=== PATIENT | male | born 1940 | race Caucasian/White ===

== ENCOUNTER 2020-04-10 09:10 | Emergency (ER) | payer MEDICARE, MEDICAID, SELFPAY ==
[2020-04-10 09:15] VITALS: BP 193/129; PULSE 84; RESP 18; TEMP 36.6; O2SAT 97; BMI 24.1
--- NOTE | 2020-04-10 09:20 | CT_ITS ---
WS: [id number] CT CERVICAL SPINE HISTORY: fall TECHNIQUE: Contiguous 2.5 mm axial imaging performed through the entire cervical spine. Sagittal and coronal reformats also performed. All CT scans at [facility] use at least one of these do se optimization techniques: automated exposure control; mA and/or kV adjustment per patient size (inc ludes targeted exams where dose is matched to clinical indication); or iterative reconstruction. DLP: 613.3 mGy.cm COMPARISON: 07/16/2015 Slight increase in the cervical lordosis. Craniocervical junction is normally aligned. Lateral masses of C1 and C2 are normally aligned. Odontoid is intact. Degenerative disc disease and bridging osteophytes most significant at C5-6 and C6-7. Facet joints ar e normally aligned. Mild narrowing of the facet joints throughout. C2-C3: Central disc protrusion with no stenosis. C3-C4: Osteophytic ridging with mild central and foraminal stenosis. No fracture. C4-C5: Osteophytic ridging. Moderate central stenosis and mild RIGHT foraminal stenosis. C5-C6: Diffuse osteophytic ridging. Moderate to severe central and bilateral foraminal stenosis. C6-C7: Diffuse osteophytic ridging with severe central and bilateral foraminal stenosis. C7-T1: Mild osteophytic ridging and annular disc bulging. Artifact through the lower cervical spine. Disc protrusions are not completely excluded. Biapical pleural thickening, RIGHT greater than LEFT. Moderate atherosclerosis of the intracranial ca rotid arteries. Moderate calcification through the extracranial carotid arteries with no significant stenosis. CT/CT cervical spin wo con* [id number] IMPRESSION: 1. No acute cervical spine fracture. 2. Multilevel stenoses. Most significant from C4-5 to C6-7.
--- NOTE | 2020-04-10 09:20 | CT_ITS ---
WS: [id number] CT FACIAL BONES HISTORY: fall TECHNIQUE: Images obtained from the supraorbital location through the mandible. Soft tissue and bone windows are reviewed. Coronal and sagittal reformats have also been submitted. DLP: 805.[address] scans at [facility] use at least one of these dose optimization techniques: automat ed exposure control; mA and/or kV adjustment per patient size (includes targeted exams where dose is matched to clinical indication); or iterative reconstruction. COMPARISON: None available. Bilateral nasal bone fractures. The LEFT nasal bone fracture is displaced medially. There is a nondis placed fracture through the mid RIGHT nasal bone also. Nasal septum is intact. There is an S-shaped c urvature of the nasal septum. Soft tissue edema from the injury surrounding the nasal bones. No air-fluid levels in the sinuses. The zygomatic arches are normal. Mandible is intact. Craniocervic al junction is normal. CT/CT facial bones wo con* [id number] IMPRESSION: 1. Bilateral nasal bone fractures. 2. Slight medial deviation of the LEFT nasal bone fracture.
--- NOTE | 2020-04-10 09:20 | ECG_ITS ---
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 Measurements Intervals [place] Rate: 79 P: 70 [place]: 188 QRS: 28 QRSD: 85 T: 56 QT: 376 QTc: 433 Interpretive Statements SINUS RHYTHM MODERATE VOLTAGE CRITERIA FOR LVH, CONSIDER NORMAL VARIANT [MEETS CRITERIA IN ONE OF: R(aVL), S(V1), R(V5), R(V5/V6)+S(V1)] Compared to ECG 06/25/2015 05:54:32 No significant changes Electronically Signed On 04-10-2020 22:43:36 CDT by Joshua Patel M.D. [email or web address]
--- NOTE | 2020-04-10 09:20 | CT_ITS ---
WS: [id number] CT HEAD NONCONTRAST HISTORY: fall TECHNIQUE: Contiguous axial imaging performed through the brain in 2.5 mm imaging. Bone and soft tiss ue windows. Sagittal and coronal reformats reviewed. All CT scans at [facility] use at le ast one of these dose optimization techniques: automated exposure control; mA and/or kV adjustment pe r patient size (includes targeted exams where dose is matched to clinical indication); or iterative r econstruction. DLP: 995.07 mGy.cm COMPARISON: None available. No acute intracranial hemorrhage, midline shift or mass effect. Mild symmetric atrophy and chronic ischemic disease. Ventricles: Normal size with no hydrocephalus. No inferior displacement of cerebellar. Paranasal sinuses: As visualized are clear. 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 Calvarium and scalp: No skull fracture. Incompletely visualized nasal bones but there is a fracture t hrough the LEFT nasal bone and possibly the RIGHT. This will be better evaluated on the facial bone C T performed at the same time. CT/CT head wo con* [id number] IMPRESSION: 1. No acute intracranial hemorrhage or edema. 2. Mild atrophy and chronic ischemic disease. 3. LEFT nasal bone fracture. More detailed imaging of the facial bones on the dedicated CT to follow.
--- NOTE | 2020-04-10 09:27 | W.ED.FALL ---
HPI - Fall General: Chief Complaint: Fall Stated Complaint: FALL Time Seen by Provider: 04/10/20 09:12 History of Present Illness: HPI Narrative: This patient is a 79-year-old male who is a resident at an assisted living facility. He was out walking around the block this morning when he lost his balance and fell forward. He describes the fall as his head getting ahead of his body. He said he felt like he was just walking faster and faster forward to try to catch up with his head and eventually crashed. He hit his face on the sidewalk. He has swelling and deformity to his nose as well as bleeding from the nose. He has a bump on his left elbow. He denies neck pain. He has back pain which is chronic and unchanged. He denies any prior falls like this and denies having problems like this with his balance in the past. MD complaint: fall Onset (ago): hour(s) (1) Fall from: standing Place fall occurred: [facility] Loss of consciousness: None Prolonged down time: no Symptoms prior to fall: none and other ([place] like he was falling forward and rushing to try to catch up with his head) Context: tripped/slipped Location of injury: head and face Location of injury - extremities: Left: elbow Quality: aching Associated symptoms-after fall: Reports difficulty walking; Denies abdominal pain, chest pain or neck pain Review of Systems General: Reports: 10 or more systems reviewed and unremarkable except in HPI and below Const: Denies: fever(s), chills, fatigue or malaise Eyes: Denies: change in vision ENMT: Denies: odynophagia Card: Denies: chest pain or swelling of feet/ankles Resp: Denies: dyspnea, productive cough or non-productive cough GI: Denies: abdominal pain, nausea or vomiting : Denies: flank pain Musc: Denies: neck pain or back pain Skin/Breast: Denies: rash Neuro: Reports: difficulty walking Biju/Lymph: Denies: easy bruising or easy bleeding Physical Exam Const: COMMON NORMALS: no acute distress, patient oriented x3, no limitations and alert GENERAL APPEARANCE: cooperative and comfortable HENMT: HEAD & SCALP: normal to inspection NOSE: Abnormal external nose present nasal abrasion, nasal tenderness and nasal swelling and Epistaxis present (Dried blood bilaterally no active bleeding) Eye: GENERAL EYE: appearance normal, both eyes and all related structures Neck/C-Spine: COMMON NORMALS: supple, no meningeal signs and no JVD Chest: COMMONS NORMALS: normal inspection of the chest Resp: COMMON NORMALS: normal respiratory effort, No use of accessory muscles and clear to auscultation bilaterally AUSCULTATION: clear to auscultation bilaterally Cardio: COMMON NORMALS: no JVD, regular rate, regular rhythm and No murmurs present (Cardio) RATE: regular rate RHYTHM: regular rhythm GI: COMMON NORMALS: Normal to inspection, nondistended, normoactive bowel sounds present, Soft to palpation and non-tender INSPECTION: Yes normal to inspection AUSCULTATION: Yes normoactive bowel sounds PALPATION: Yes Soft to palpation Back/Pelvis: COMMON NORMALS: thoracic and lumbar spine normal to inspection Extremity: COMMON NORMALS: normal to inspection LEFT UPPER EXTREMITY: Yes elbow joint (Very slight abrasion, mild tenderness, full range of motion with no bony tenderness or deformity) Neuro: COMMON NORMALS: patient oriented x3, moves all extremities, no focal motor deficits and no sensory deficits noted SENSORIUM/ORIENTATION: Yes alert MENINGEAL SIGNS: Yes no meningeal signs SPEECH: Other neuro speech findings (Short answers) Psych: COMMON NORMALS: mental status grossly normal, cooperative and normal affect SPEECH: Yes minimal Skin: COMMON NORMALS: no rashes or lesions noted and turgor normal GENERAL SKIN EXAM: no rashes or lesions noted and turgor normal Course ED course: Patient complained of some dizziness and requested some pain medicine. On recheck he said he still is dizzy and his daughter who is in the room with him says that he is often dizzy. The patient said this is his normal, typical dizziness. He was not dizzy prior to the fall. He is feeling somewhat better. He would like to try to go home. His only injury seems to be a nasal bone fracture. He has abrasions on his nose but nothing that will require sutures. His daughter says that the reason he was moved to the assisted living 2 months ago was because of falls at home and she says this is not necessarily unusual for him. We will get him up and do an ambulation trial prior to discharge. Reevaluation(s): Reevaluation #1: Patient was unsteady on his feet and we had physical therapy come and evaluate him and train him on using a walker. He was provided a walker and did fairly well with it. He definitely requires that for safe ambulation. He was discharged home. His daughter was with him and the plan was discussed with her as well. Vital Signs: Vital signs: Vital Signs Temperature 97.9 F 04/10/20 09:15 Pulse Rate 82 04/10/20 14:32 Respiratory Rate 18 04/10/20 14:32 Blood Pressure 167/103 04/10/20 14:32 Pulse Oximetry 97 04/10/20 14:32 MDM - Fall Lab Data: Labs: Lab Results 04/10/20 04/10/20 04/10/20 Range/Units 09:31 09:31 10:32 WBC 8.0 (4.0-10.0) 10^3/ uL RBC 4.76 (4.1-5.3) 10^6/u L Hgb 14.0 (11.7-16.6) g/dL Hct 45.8 (42.0-52.0) % MCV 96.2 H (80-94) fL MCH 29.4 (28.0-34.0) pg MCHC 30.6 (30.0-36.0) g/dL RDW 13.3 (12.1-15.1) % Plt Count 215 (130-400) 10^3/c mm MPV 8.7 (7.4-10.4) fL Neut % (Auto) 74.0 % Lymph % (Auto) 12.2 % [place]linger % (Auto) 12.0 % Eos % (Auto) 1.1 % Baso % (Auto) 0.5 % Neut # (Auto) 5.92 (1.8-7.7) 10^3/u L Lymph # (Auto) 1.0 (0.8-4.8) 10^3/u L Bollinger # (Auto) 1.0 H (0.2-0.9) 10^3/u L Eos # (Auto) 0.1 (0.0-0.8) 10^3/u L Baso # (Auto) 0.0 (0.0-0.1) 10^3/u L Nucleated RBC % (a uto) 0 % Nucleated RBCs # 0.0 /100WBC Sodium 138 (136-145) mmol/L Potassium 4.1 (3.5-5.1) mmol/L Chloride 102 (98-107) mmol/L Carbon Dioxide 26 (22-29) mmol/L Anion Gap 14.1 (5-19) BUN 14 (8-23) mg/dL Creatinine 1.2 (0.7-1.2) mg/dL GFR Calculation Not Reportable Glucose 122 H (65-115) mg/dL Calculated Osmolal ity 284 L (285-295) mOsm/k g Calcium 9.0 (8.5-10.5) mg/dL Total Bilirubin 0.3 (0.15-1.2) mg/dL AST 20 (0-40) U/L ALT 20 (0-41) U/L Alkaline Phosphata se 88 (40-130) IU/L Total Protein 7.4 (6.6-8.7) g/dL Albumin 4.4 (3.5-5.2) g/dL Globulin 3.0 (1.3-4.6) g/dL Urine Color Yellow (Yellow) Urine Appearance Clear (CLEAR) Urine pH 6.5 (5-7) Ur Specific Gravit y 1.010 (1.005-1.030) Urine Protein Neg (Negative) Urine Glucose (UA) Norm (Normal) Urine Ketones Negative (Negative) Urine Blood Neg (Negative) Urine Nitrate Negative (Negative) Urine Bilirubin Neg (NEGATIVE) Urine Urobilinogen Neg (Negative) mg/dL Ur Leukocyte Anali ase Negative (Negative) Discharge Plan Discharge Patient Disposition: [facility] Clinical Impression: Unstable gait Fall Qualifiers: Encounter type: initial encounter Qualified Code(s): W19.XXXA - Unspecified fall, initial encounter Closed fracture nasal bone Qualifiers: Encounter type: initial encounter Qualified Code(s): S02.2XXA - Fracture of nasal bones, initial encounter for closed fracture Condition: Stable Discharge Orders: Discharge Order (Routine); Ordered 04/10/20 Ordered By: Lakshmi Florez Other Ambulatory Orders: DME: Walker (Order) Location: None Selected Ordered By: Lakshmi Florez Referrals: Arron Salmon MD [Physician] - 2 weeks Discharge Diet: Usual diet Discharge Activity: Use walker/crutches as instructed Patient Instructions: Fall Prevention for Older Adults (ED) Activity Restrictions/Additional Instructions: Use great care when walking alone. Use the walker to help you keep your balance. The nasal bone fracture should heal without complications. Follow-up with your primary care doctor or ear nose and throat for further evaluation of this. You may apply antibacterial ointment to the abrasion on the nose once or twice daily for a few days. Return to the emergency department if new or worse symptoms occur. Discharge Date/Time: 04/10/20 14:34 Coding Level of Care Code ED Call Worker Person for Kulwinder Fwderrick Exam Comprehensive
[2020-04-10 09:40] LABS: Basophils % 0.5 %; Eosinophils # 0.1 10^3/uL (0.0-0.8); Eosinophils % 1.1 %; Hematocrit 45.8 % (42.0-52.0); Lymphocytes % 12.2 %; Mean Corpuscular HGB Conc 30.6 g/dL (30.0-36.0); Mean Corpuscular Hemoglobin 29.4 pg (28.0-34.0); Mean Corpuscular Volume 96.2 fL (80-94); Mean Platelet Volume 8.7 fL (7.4-10.4); Neutrophils # 5.92 10^3/uL (1.8-7.7); Nucleated Red Blood Cells % 0 %; Platelet Count 215 10^3/cmm (130-400); Red Blood Count 4.76 10^6/uL (4.1-5.3); Red Cell Distribution Width 13.3 % (12.1-15.1)
--- NOTE | 2020-04-10 09:51 | CT_ITS ---
WS: [id number] CT LUMBAR SPINE, noncontrast. HISTORY: fall, back pain TECHNIQUE: Contiguous 2.5 mm axial imaging are performed. Sagittal and coronal reformats are submitte d and reviewed. All CT scans at [facility] use at least one of these dose optimization te chniques: automated exposure control; mA and/or kV adjustment per patient size (includes targeted exa ms where dose is matched to clinical indication); or iterative reconstruction. IV contrast: None DLP: 2156.61 mGy-cm. COMPARISON: None available. Mild rotoscoliosis with convexity to the RIGHT. Posterior lumbar alignment is normal. No fractures. D isc space narrowing and desiccation throughout the lumbar spine. Large clawlike osteophytes most sign ificant at T12-L1 and L1-2. L1-2: Mild annular disc bulging and osteophytic ridging. No stenosis. L2-3: Moderate diffuse osteophytic ridging. Mild bilateral foraminal and central stenosis. L3-4: Diffuse annular disc bulging. Mild central and subarticular recess stenosis. L4-5: Diffuse annular disc bulging and osteophytic ridging. Marked facet joint arthritis. Severe RIGH T foraminal and subarticular recess stenosis. Moderate central and LEFT foraminal narrowing. L5-S1: Facet joint arthritis. No stenosis. Scattered atherosclerosis aorta with no aneurysm. No free fluid. Vascular calcifications. CT/CT lumbar spine wo con* [id number] IMPRESSION: 1. No acute lumbar spine fracture. 2. Degenerative RIGHT scoliosis. 3. Severe RIGHT foraminal subarticular recess stenosis at L4-5 with moderate c entral LEFT foraminal stenosis due to osteophyte and disc disease.
[2020-04-10 09:56] LABS: Alanine Aminotransferase 20 U/L (0-41); Albumin Level 4.4 g/dL (3.5-5.2); Alkaline Phosphatase 88 IU/L (40-130); Anion Gap 14.1 (5-19); Aspartate Amino Transferase 20 U/L (0-40); Blood Urea Nitrogen 14 mg/dL (8-23); Carbon Dioxide 26 mmol/L (22-29); Chloride 102 mmol/L (98-107); Glucose 122 mg/dL (65-115); Osmolality Calculated 284 mOsm/kg (285-295); Potassium 4.1 mmol/L (3.5-5.1); Sodium 138 mmol/L (136-145); Total Bilirubin 0.3 mg/dL (0.15-1.2); Total Protein 7.4 g/dL (6.6-8.7)
[2020-04-10 10:52] LABS: Add Urine Microscopic? NO
[2020-04-10 10:53] VITALS: RESP 12
[2020-04-10] MEDS: morphine 4 mg/mL SDV 1 mL IVP (10:53)
[2020-04-10] MEDS: meclizine 25 mg tablet PO (10:53)
[2020-04-10] MEDS: ondansetron 2 mg/ML SDV 2 mL 4 MG IVP (10:53)
[2020-04-10 11:03] LABS: Bilirubin Urine Neg (NEGATIVE); Blood Urine Neg (Negative); Glucose Urine UA Norm (Normal); Ketones Urine Negative (Negative); Leukocyte Esterase Urine Negative (Negative); Nitrate Urine Negative (Negative); Protein Urine Neg (Negative); Urine Appearance Clear (CLEAR); Urine Color Yellow (Yellow); Urobilinogen Urine Neg (Negative); pH Urine 6.5 (5-7)
[2020-04-10 13:31] VITALS: BP 167/107; PULSE 82; RESP 16; O2SAT 96
--- NOTE | 2020-04-10 14:13 | PC.NURSE ---
PT THERAPY IN ROOM WITH PATIENT TO GIVE INSTRUCTION FOR USE OF WALKER. PATIENT AMBULATED WELL
[2020-04-10 14:32] VITALS: BP 167/103; PULSE 82; RESP 18; O2SAT 97
== END 2020-04-10 14:34 ==
PROVIDERS: Emergency Provider Emergency Medicine
DX: S02.2XXA Fracture of nasal bones, initial encounter for closed fracture (principal); R26.81 Unsteadiness on feet; W19.XXXA Unspecified fall, initial encounter
CPT/HCPCS: 12345; 36415; 70450; 70486; 72125; 72131; 80053; 81003; 85025; 93005; 96374; 96375; 97116; 97161; 99282; 99284; J2270; J2405; J8597

== ENCOUNTER 2020-06-27 10:40 | Emergency (ER) | payer MEDICARE, MEDICAID, SELFPAY ==
[2020-06-27 10:51] VITALS: BP 116/85; PULSE 63; RESP 16; TEMP 36.6; O2SAT 98; BMI 27.8
--- NOTE | 2020-06-27 10:55 | XR_ITS ---
WS: [id number] XR chest 1V portable [id number] REASON FOR EXAM: chest pain FINDINGS: Moderately tortuous thoracic aorta. Normal heart size. Coronary artery stent. Calcified granulomatous disease in both hemithoraces. Presumed calcified pleural plaque is seen overl sohan the lateral right upper lung. Mild flattening of the hemidiaphragms. No active pulmonary parenchymal or pleural disease is identified. Degenerative arthropathy in the shoulder joints and degenerative spondylosis in the mid and lower tho racic spine with mild S-shaped scoliosis. XR/XR chest 1V portable [id number] IMPRESSION: Chronic changes in the chest as above. No definite acute abnormality identified .
--- NOTE | 2020-06-27 10:55 | ECG_ITS ---
[facility] Test Date: 2020-06-27 Pat Name: Jareth Mcqueen Department: Room: Gender: Male [employer]: : 1940 Requested By: Lakshmi Fleming Order Number: [id number] Reading MD: COLE HENDRICKS Measurements Intervals [place] Rate: 61 P: 85 [place]: 174 QRS: 31 QRSD: 84 T: 60 QT: 402 QTc: 406 Interpretive Statements SINUS RHYTHM Compared to ECG 04/10/2020 10:14:42 No significant changes Electronically Signed On 06-27-2020 19:28:37 IMMUNOLOGY TEACHER by COLE HENDRICKS [email or web address]
[2020-06-27 11:24] LABS: Add Urine Microscopic? NO
[2020-06-27] MEDS: morphine 4 mg/mL SDV 1 mL IVP (11:35)
[2020-06-27] MEDS: nitroglycerin 1 gm/inch oint Pkt 0.5 INCH TOPICAL (11:36)
[2020-06-27 11:44] LABS: Bilirubin Urine Neg (Negative); Blood Urine Neg (Negative); Glucose Urine UA Norm (Normal); Ketones Urine Negative (Negative); Leukocyte Esterase Urine Negative (Negative); Nitrate Urine Negative (Negative); Protein Urine Neg (Negative); Urine Appearance Clear (CLEAR); Urine Color Yellow (Yellow); Urobilinogen Urine Norm (Negative); pH Urine 5 (5-7)
--- NOTE | 2020-06-27 11:46 | W.ED.CHESTPA ---
HPI - Chest Pain General: Chief Complaint: Chest Pain Stated Complaint: CHEST PAIN Time Seen by Provider: 06/27/20 10:42 History of Present Illness: HPI narrative: This patient is a 79-year-old male presenting with chest pain. He said it started about 8:00 this morning. He can localize it to an area directly behind his left breast. He said he has had stents before but this does not really feel the same. He says it is more in one spot. It does not radiate anywhere. It is worse with a deep breath, cough, laughing. He denies any fevers, chills. He is not coughing anything up. He does not feel short of breath. He has not had nausea or lightheadedness. He says that he did not want to come to the hospital today but they made him. He is living in an assisted living. He did get nitroglycerin x2 en route. That helped with his pain some. He also got aspirin. MD complaint: chest pain Pertinent past history: coronary artery disease, prior [place] and [employer] MECH[employer] Onset (ago): hour(s) (3) Timing of current episode: constant Prior episodes: No Onset: during rest Pain location: left chest Pain radiation: none Severity: moderate Quality: sharp Relieving factors: nitroglycerin (Decreased from a 5 out of 10 to a 3 out of 10) Exacerbating factors: inspiration and movement Associated symptoms: Reports no associated symptoms; Deny abdominal pain, dyspnea, fever(s), nausea or vomiting Review of Systems General: Reports: 10 or more systems reviewed and unremarkable except in HPI and below Const: Denies: fever(s), chills, fatigue or malaise Eyes: Denies: change in vision ENMT: Denies: odynophagia Card: Reports: chest pain; Denies: swelling of feet/ankles Resp: Denies: dyspnea, productive cough or non-productive cough GI: Denies: abdominal pain, nausea or vomiting : Denies: flank pain Musc: Denies: neck pain or back pain Skin/Breast: Denies: rash Neuro: Denies: headache(s), numbness in extremities or weakness in extremities Biju/Lymph: Denies: easy bruising or easy bleeding Physical Exam Const: COMMON NORMALS: no acute distress, patient oriented x3, no limitations and alert GENERAL APPEARANCE: cooperative HENMT: HEAD & SCALP: normal to inspection FACE & SINUS: normal facial exam Eye: GENERAL EYE: appearance normal, both eyes and all related structures Neck/C-Spine: COMMON NORMALS: supple, no meningeal signs and no JVD Chest: COMMONS NORMALS: normal inspection of the chest Resp: COMMON NORMALS: normal respiratory effort, No use of accessory muscles and clear to auscultation bilaterally AUSCULTATION: clear to auscultation bilaterally Cardio: COMMON NORMALS: no JVD, regular rate, regular rhythm and No murmurs present (Cardio) RATE: regular rate RHYTHM: regular rhythm GI: COMMON NORMALS: Normal to inspection, nondistended, normoactive bowel sounds present, Soft to palpation and non-tender INSPECTION: Yes normal to inspection AUSCULTATION: Yes normoactive bowel sounds PALPATION: Yes Soft to palpation Back/Pelvis: COMMON NORMALS: thoracic and lumbar spine normal to inspection Extremity: COMMON NORMALS: normal to inspection Neuro: COMMON NORMALS: patient oriented x3, moves all extremities, no focal motor deficits and no sensory deficits noted SENSORIUM/ORIENTATION: Yes alert MENINGEAL SIGNS: Yes no meningeal signs Psych: COMMON NORMALS: mental status grossly normal, cooperative and normal affect Skin: COMMON NORMALS: no rashes or lesions noted and turgor normal GENERAL SKIN EXAM: no rashes or lesions noted and turgor normal Course ED course: . Chemistries were normal. D-dimer was markedly elevated to 2.02. CTA was done and showed no PE but he does have some left lower lobe pneumonia or pneumonitis. Sats are 100%. His labs are not suggestive of Covid. He has no fever. I am going to put him on some antibiotics and let him go home.The chest x-ray shows a small area of consolidation in the left lower lobe. This is consistent with patient's area of pain. Vital Signs: Vital signs: Vital Signs Temperature 97.9 F 06/27/20 10:51 Pulse Rate 88 06/27/20 17:55 Respiratory Rate 18 06/27/20 17:55 Blood Pressure 133/76 06/27/20 17:55 Pulse Oximetry 100 06/27/20 17:55 MDM - Chest Pain Lab Data: Labs: Lab Results 06/27/20 06/27/20 06/27/20 Range/Units 10:30 10:30 10:30 WBC Cancelled Corrected WBC Cancelled RBC Cancelled Hgb Cancelled Hct Cancelled MCV Cancelled MCH Cancelled MCHC Cancelled RDW Cancelled Plt Count Cancelled MPV Cancelled Gran % Cancelled Neut % (Auto) Cancelled Lymph % (Auto) Cancelled Andrew % (Auto) Cancelled Eos % (Auto) Cancelled Baso % (Auto) Cancelled Neut # (Auto) Cancelled Lymph # (Auto) Cancelled Andrew # (Auto) Cancelled Eos # (Auto) Cancelled Baso # (Auto) Cancelled Absolute Gran (aut o) Cancelled Nucleated RBC % (a uto) Cancelled Nucleated RBCs # Cancelled PT Cancelled INR Cancelled D-Dimer Cancelled Sodium Cancelled Potassium Cancelled Chloride Cancelled Carbon Dioxide Cancelled Anion Gap Cancelled BUN Cancelled Creatinine Cancelled GFR Calculation Cancelled Glucose Cancelled Calculated Osmolal ity Cancelled Calcium Cancelled Total Bilirubin Cancelled AST Cancelled ALT Cancelled Alkaline Phosphata se Cancelled Troponin T Baselin e Troponin T 120 Min [place] (0-15) ng/L Delta Troponin T (0-10) ABS# NT-Pro-B Natriuret Pep Cancelled Total Protein Cancelled Albumin Cancelled Globulin Cancelled Lipase Cancelled Urine Color (Yellow) Urine Appearance (CLEAR) Urine pH (5-7) Ur Specific Gravit y (1.005-1.030) Urine Protein (Negative) Urine Glucose (UA) (Normal) Urine Ketones (Negative) Urine Blood (Negative) Urine Nitrate (Negative) Urine Bilirubin (Negative) Urine Urobilinogen (Negative) mg/dL Ur Leukocyte Anali ase (Negative) 06/27/20 06/27/20 06/27/20 Range/Units 10:30 11:22 11:35 WBC 7.7 Corrected WBC RBC 4.35 Hgb 13.1 Hct 41.4 L MCV 95.2 H MCH 30.1 MCHC 31.6 RDW 12.8 Plt Count 224 MPV 9.0 Gran % Neut % (Auto) 74.6 Lymph % (Auto) 11.6 Andrew % (Auto) 11.9 Eos % (Auto) 1.0 Baso % (Auto) 0.5 Neut # (Auto) 5.74 Lymph # (Auto) 0.9 Andrew # (Auto) 0.9 Eos # (Auto) 0.1 Baso # (Auto) 0.0 Absolute Gran (aut o) Nucleated RBC % (a uto) 0 Nucleated RBCs # 0.0 PT INR D-Dimer Sodium Potassium Chloride Carbon Dioxide Anion Gap BUN Creatinine GFR Calculation Glucose Calculated Osmolal ity Calcium Total Bilirubin AST ALT Alkaline Phosphata se Troponin T Baselin e Cancelled Troponin T 120 Min [place] (0-15) ng/L Delta Troponin T (0-10) ABS# NT-Pro-B Natriuret Pep Total Protein Albumin Globulin Lipase Urine Color Yellow (Yellow) Urine Appearance Clear (CLEAR) Urine pH 5 (5-7) Ur Specific Gravit y 1.010 (1.005-1.030) Urine Protein Neg (Negative) Urine Glucose (UA) Norm (Normal) Urine Ketones Negative (Negative) Urine Blood Neg (Negative) Urine Nitrate Negative (Negative) Urine Bilirubin Neg (Negative) Urine Urobilinogen Norm (Negative) mg/dL Ur Leukocyte Anali ase Negative (Negative) 06/27/20 06/27/20 06/27/20 Range/Units 11:35 11:35 11:35 WBC Corrected WBC RBC Hgb Hct MCV MCH MCHC RDW Plt Count MPV Gran % Neut % (Auto) Lymph % (Auto) Andrew % (Auto) Eos % (Auto) Baso % (Auto) Neut # (Auto) Lymph # (Auto) Andrew # (Auto) Eos # (Auto) Baso # (Auto) Absolute Gran (aut o) Nucleated RBC % (a uto) Nucleated RBCs # PT Cancelled INR Cancelled D-Dimer Cancelled Sodium 137 Potassium 4.0 Chloride 102 Carbon Dioxide 24 Anion Gap 15.0 BUN 14 Creatinine 1.3 H GFR Calculation Not Reportable Glucose 87 Calculated Osmolal ity 284 L Calcium 8.9 Total Bilirubin 0.3 AST 19 ALT 17 Alkaline Phosphata se 93 Troponin T Baselin e 14 Troponin T 120 Min [place] (0-15) ng/L Delta Troponin T (0-10) ABS# NT-Pro-B Natriuret Pep 283 Total Protein 6.7 Albumin 3.8 Globulin 2.9 Lipase 15 Urine Color (Yellow) Urine Appearance (CLEAR) Urine pH (5-7) Ur Specific Gravit y (1.005-1.030) Urine Protein (Negative) Urine Glucose (UA) (Normal) Urine Ketones (Negative) Urine Blood (Negative) Urine Nitrate (Negative) Urine Bilirubin (Negative) Urine Urobilinogen (Negative) mg/dL Ur Leukocyte Anali ase (Negative) 06/27/20 06/27/20 Range/Units 12:10 13:35 WBC Corrected WBC RBC Hgb Hct MCV MCH MCHC RDW Plt Count MPV Gran % Neut % (Auto) Lymph % (Auto) Andrew % (Auto) Eos % (Auto) Baso % (Auto) Neut # (Auto) Lymph # (Auto) Andrew # (Auto) Eos # (Auto) Baso # (Auto) Absolute Gran (aut o) Nucleated RBC % (a uto) Nucleated RBCs # PT 13.80 INR 1.02 D-Dimer 2.02 H Sodium Potassium Chloride Carbon Dioxide Anion Gap BUN Creatinine GFR Calculation Glucose Calculated Osmolal ity Calcium Total Bilirubin AST ALT Alkaline Phosphata se Troponin T Baselin e Troponin T 120 Min [place] 13.75 (0-15) ng/L Delta Troponin T -0.25 L (0-10) ABS# NT-Pro-B Natriuret Pep Total Protein Albumin Globulin Lipase Urine Color (Yellow) Urine Appearance (CLEAR) Urine pH (5-7) Ur Specific Gravit y (1.005-1.030) Urine Protein (Negative) Urine Glucose (UA) (Normal) Urine Ketones (Negative) Urine Blood (Negative) Urine Nitrate (Negative) Urine Bilirubin (Negative) Urine Urobilinogen (Negative) mg/dL Ur Leukocyte Anali ase (Negative) Discharge Plan Discharge Patient Disposition: Home Clinical Impression: Pneumonia, Chest pain Condition: Stable Prescriptions: New doxycycline hyclate 100 mg capsule 100 mg PO BID 14 Days Qty: 28 RF: 0 No Action cetirizine 10 mg tablet 10 mg PO DAILY RF: 0 donepezil 10 mg tablet 10 mg PO BEDTIME RF: 0 lisinopril 20 mg tablet 20 mg PO BID RF: 0 prochlorperazine maleate 10 mg tablet 10 mg PO Q8H PRN (Reason: n/v) RF: 0 omeprazole 40 mg capsule,delayed release(DR/EC) 40 mg PO DAILY RF: 0 tramadol 50 mg tablet 50 mg PO Q6H PRN (Reason: Pain) RF: 0 acetaminophen 500 mg Tablet 1,000 mg PO Q6H PRN (Reason: Pain) RF: 0 meclizine 25 mg tablet 25 mg PO TID PRN (Reason: Dizziness) RF: 0 ferrous sulfate 325 mg (65 mg iron) Tablet 325 mg PO DAILY RF: 0 nitroglycerin 0.4 mg tablet, sublingual 0.4 mg sublingual PRN RF: 0 gabapentin 300 mg capsule 300 mg PO TID RF: 0 azelastine 137 mcg (0.1 %) aerosol,spray 2 spray intranasal BID RF: 0 albuterol sulfate [Ventolin HFA] 90 mcg/actuation HFA aerosol inhaler 2 puff inhalation Q4H PRN (Reason: Shortness Of Breath) RF: 0 diphenhydramine-acetaminophen [Acetaminophen PM] 25-500 mg Tablet 1 tab PO BEDTIME RF: 0 fluticasone propionate 50 mcg/actuation spray,suspension 2 spray intranasal DAILY RF: 0 Ex-Lax Maximum Strength 25 mg Tablet 25 mg PO DAILY RF: 0 dicyclomine 10 mg Capsule 10 mg PO TID PRN (Reason: Pain) RF: 0 cholecalciferol (vitamin D3) 1,250 mcg (50,000 unit) Capsule 1,250 mcg PO Q7D RF: 0 Triple Antibiotic 3.5mg-400 unit- 5,000 unit/gram Ointment See Rx Instructions .ROUTE .COMPLEX RF: 0 furosemide 20 mg Tablet 20 mg PO DAILY RF: 0 Discharge Orders: Discharge Order (Routine); Ordered 06/27/20 Ordered By: Lakshmi Florez Discharge Diet: Usual diet Discharge Activity: Resume usual activity Patient Instructions: Bacterial Pneumonia (ED) Activity Restrictions/Additional Instructions: Take the doxycycline as prescribed. Follow-up with your primary care doctor in about a week to make sure things are improving. Return to the ER if any new or worse symptoms occur. Continue your other regular medications as well. Coding Level of Care Code ED Computer Artist for Kulwinder Fwderrick Exam Comprehensive
[2020-06-27 11:49] LABS: Basophils % 0.5 %; Eosinophils # 0.1 10^3/uL (0.0-0.8); Hematocrit 41.4 % (42.0-52.0); Hemoglobin 13.1 g/dL (11.7-16.6); Lymphocytes # 0.9 10^3/uL (0.8-4.8); Lymphocytes % 11.6 %; Mean Corpuscular HGB Conc 31.6 g/dL (30.0-36.0); Mean Corpuscular Hemoglobin 30.1 pg (28.0-34.0); Mean Corpuscular Volume 95.2 fL (80-94); Monocytes # 0.9 10^3/uL (0.2-0.9); Monocytes % 11.9 %; Neutrophils # 5.74 10^3/uL (1.8-7.7); Neutrophils % 74.6 %; Nucleated Red Blood Cells % 0 %; Platelet Count 224 10^3/cmm (130-400); Red Blood Count 4.35 10^6/uL (4.1-5.3); Red Cell Distribution Width 12.8 % (12.1-15.1); White Blood Count 7.7 10^3/uL (4.0-10.0)
[2020-06-27 12:20] VITALS: BP 131/75; PULSE 59; RESP 19; O2SAT 96
[2020-06-27 12:21] LABS: Troponin(5th) Baseline 14 ng/L (0-15)
[2020-06-27 12:30] LABS: Alanine Aminotransferase 17 U/L (0-41); Albumin Level 3.8 g/dL (3.5-5.2); Alkaline Phosphatase 93 IU/L (40-130); Aspartate Amino Transferase 19 U/L (0-40); Blood Urea Nitrogen 14 mg/dL (8-23); Calcium 8.9 mg/dL (8.5-10.5); Carbon Dioxide 24 mmol/L (22-29); Chloride 102 mmol/L (98-107); Globulin 2.9 g/dL (1.3-4.6); Glucose 87 mg/dL (65-115); Lipase 15 U/L (13-60); NT Pro B Type Natriuretic Pept 283 pg/mL (0-450); Osmolality Calculated 284 mOsm/kg (285-295); Sodium 137 mmol/L (136-145); Total Bilirubin 0.3 mg/dL (0.15-1.2); Total Protein 6.7 g/dL (6.6-8.7)
[2020-06-27 12:48] LABS: INR 1.02 (0.8-1.2)
[2020-06-27 12:50] LABS: D Dimer 2.02 ug/mIFEU (0-0.59)
--- NOTE | 2020-06-27 12:55 | ECG_ITS ---
[facility] Test Date: 2020-06-27 Pat Name: Jareth Mcqueen Department: Room: Gender: Male Esthetician/Owner: : 1940 Requested By: Lakshmi Fleming Order Number: [id number] Marti MD: COLE HENDRICKS Measurements Intervals [place] Rate: 57 P: 75 SC: 177 QRS: 42 QRSD: 90 T: 58 QT: 421 QTc: 412 Interpretive Statements SINUS BRADYCARDIA Compared to ECG 04/10/2020 10:14:42 Sinus rhythm no longer present Electronically Signed On 06-27-2020 19:32:22 ADVANCED CLINICAL SPECIALIST by COLE HENDRICKS [id number]
--- NOTE | 2020-06-27 13:14 | CT_ITS ---
WS: [id number] CT angio chest PE protcl [id number] REASON FOR EXAM: chest pain, SOB TECHNIQUE: Coronal and sagittal 2-D and MIP reformations. IV CONTRAST ADMINISTERED: 57 mL of Visipaque. TOTAL EXAM DLP: 563.[address] scans at [facility] use at least one of these dose optimization techniques: automat ed exposure control; mA and/or kV adjustment per patient size (includes targeted exams where dose is matched to clinical indication); or iterative reconstruction. FINDINGS: Mediastinum and hilar regions: No pulmonary emboli. Normal thoracic aorta. Coronary artery calcifications and multiple stents. Hiatal hernia. Minor mediastinal and bilateral hilar adenopathy. This is associated with extensive calcified granulo matous change centrally. Lungs and pleura: No lung mass or lung nodule. Small area of lung consolidation in the posterior lateral lower left marcus g. No pleural effusion. Bony thorax: Large portion of the thoracic spine shows calcification of the anterior longitudinal ligament and the re are multiple disc levels contain calcification. No significant compression deformities and no focal lesions. CT/CT angio chest PE protcl [id number] IMPRESSION: No pulmonary emboli. Coronary artery disease as above. Left lung infiltrate, presumably pneumonitis.
[2020-06-27 13:20] VITALS: BP 124/68; PULSE 57; RESP 12; O2SAT 97
[2020-06-27 14:00] VITALS: BP 120/72; PULSE 75; RESP 18; O2SAT 97
[2020-06-27 14:16] LABS: Troponin 5 2HR 13.75 ng/L (0-15)
[2020-06-27 14:17] LABS: Troponin 5 2HR Delta -0.25 ABS# (0-10)
[2020-06-27 16:00] VITALS: BP 133/76; PULSE 88; RESP 18; O2SAT 100
[2020-06-27] MEDS: iodixanol 320 mg/mL 100mL Btl IV (16:01)
--- NOTE | 2020-06-27 16:55 | ECG_ITS ---
[facility] Test Date: 2020-06-27 Pat Name: Jareth Mcqueen Department: Room: Gender: Male Commercial Litigation Paralegal: : 1940 Requested By: Lakshmi Fleming Order Number: [id number] Reading MD: COLE HENDRICKS Measurements Intervals [place] Rate: 63 P: 75 [place]: 177 QRS: 50 QRSD: 86 T: 56 QT: 403 QTc: 415 Interpretive Statements SINUS RHYTHM Compared to ECG 06/27/2020 13:20:11 Sinus bradycardia no longer present Electronically Signed On 06-27-2020 19:31:19 EMPLOYEE SERVICE OFFICER by COLE HENDRICKS [id number]
[2020-06-27] MEDS: doxycycline 100 mg Tablet PO (17:54)
[2020-06-27 17:55] VITALS: BP 133/76; PULSE 88; RESP 18; O2SAT 100
--- NOTE | 2020-06-27 18:33 | DCPLANNER ---
manager diesel was asked to call and arrange transportation for patient. manager diesel called [employer], [place] [id number], then called [facility] transport, gave them the trip number for transportation.
== END 2020-06-27 17:55 | disposition home or self-care (01) ==
PROVIDERS: Emergency Provider Emergency Medicine
DX: J18.9 Pneumonia, unspecified organism (principal); R07.9 Chest pain, unspecified
CPT/HCPCS: 12345; 71045; 71275; 80053; 81003; 83690; 83880; 84484; 85025; 85378; 85610; 93005; 96374; 99283; J2270; Q9967

== ENCOUNTER 2020-08-26 14:57 | Inpatient (IN) | payer MEDICARE, MEDICAID, SELFPAY ==
[2020-08-26] VITALS (10 sets, daily range): BP systolic 117–173; BP diastolic 74–91; PULSE 50–88; RESP 15–20; TEMP 36.5–36.7; O2SAT 91–99; BMI 27.8
--- NOTE | 2020-08-26 15:18 | XRR_ITS ---
PROCEDURE INFORMATION: Exam: XR Chest, 1 View Exam date and time: 08/26/2020 3:33 PM Age: 80 years old Clinical indication: Shortness of breath; Chest pain; Type not specified; Prior surgery; Surgery type: Stents TECHNIQUE: Imaging protocol: XR of the chest Views: 1 view. Total images: 1 COMPARISON: CR XR chest 1V portable [id number] 06/27/2020 11:07 AM FINDINGS: Lungs: COPD/chronic bronchitis. No visible active interstitial or alveolar airspace disease. Small calcified pleural plaques. Pleural space: Unremarkable. No pleural effusion. No pneumothorax. Heart/Mediastinum: Cardiac structures and configuration stable with coronary artery disease and arteriosclerosis. Bones/joints: Scoliosis of the spine. XR/XR chest 1V portable [id number] IMPRESSION: Stable nonacute
--- NOTE | 2020-08-26 15:19 | ECG_ITS ---
[facility] Test Date: 2020-08-26 Pat Name: Jareth Mcqueen Department: Room: Gender: Male Watch Guard Gate: : 1940 Requested By: Drew Fleming Order Number: [id number] Reading MD: COLE HENDRICKS Measurements Intervals [place] Rate: 56 P: 57 [place]: 185 QRS: 24 QRSD: 89 T: 56 QT: 419 QTc: 407 Interpretive Statements SINUS BRADYCARDIA Compared to ECG 06/27/2020 17:10:03 Sinus rhythm no longer present Electronically Signed On 08-26-2020 19:57:15 WIRE TESTER by COLE HENDRICKS [id number]
--- NOTE | 2020-08-26 15:24 | W.ED.CHESTPA ---
HPI - Chest Pain General: Chief Complaint: Chest Pain Stated Complaint: CHEST PAIN Time Seen by Provider: 08/26/20 14:58 History of Present Illness: HPI narrative: 80-year-old male with a known history of coronary disease presents with complaints of chest pain radiating to his back and into his left arm. He was at rest when this began he took 3 nitro he still states it is 5 out of 10. He had some nausea and was diaphoretic with it as well. He states he has had these pains in the past but usually they are not as intense and they do not last as long as this particular episode has. He denies any fever sweats chills cough flulike symptoms. MD complaint: chest pain Pertinent past history: coronary artery disease Onset (ago): minute(s) Timing of current episode: episodic, increasing and still present Prior episodes: Yes Onset: during rest Pain location: left chest Pain radiation: left arm and back Severity: moderate Quality: tightness and sharp Relieving factors: nitroglycerin Associated symptoms: Reports diaphoresis and dyspnea; Deny abdominal pain, fever(s), leg edema, nausea, palpitations, sense of impending doom, syncope or vomiting Treatment prior to arrival: nitroglycerin Review of Systems Const: Reports: diaphoresis; Denies: fever(s) ENMT: Denies: throat pain, ear or mastoid pain, nasal discharge or nasal congestion Card: Denies: palpitations or syncope Resp: Reports: dyspnea GI: Denies: abdominal pain, nausea or vomiting : Denies: flank pain, dysuria, urinary frequency or urinary urgency Skin/Breast: Denies: rash or pruritus PFS ED PFSH: Medical History (Updated 08/26/20 @ 16:32 by Drew David DO) Coronary artery disease Physical Exam Const: COMMON NORMALS: no acute distress GENERAL APPEARANCE: cooperative and comfortable ORIENTATION/CONSCIOUSNESS: Yes awake, Yes oriented to person, Yes oriented to place and Yes oriented to time HENMT: COMMON NORMALS: normocephalic, atraumatic and hearing grossly normal bilaterally HEAD & SCALP: normocephalic and atraumatic Neck/C-Spine: COMMON NORMALS: no JVD Resp: COMMON NORMALS: normal respiratory effort, No retractions, No use of accessory muscles and clear to auscultation bilaterally AUSCULTATION: clear to auscultation bilaterally Cardio: COMMON NORMALS: no JVD, regular rate, regular rhythm and No murmurs present (Cardio) RATE: regular rate RHYTHM: regular rhythm GI: COMMON NORMALS: Soft to palpation and No hepatosplenomegaly present AUSCULTATION: Yes normoactive bowel sounds PALPATION: Yes Soft to palpation, No Tenderness to palpation present (GI), No Guarding due to palpation present (GI) and Yes No hepatosplenomegaly present Extremity: COMMON NORMALS: normal to inspection, capillary refill normal, no clubbing, cyanosis or edema, no calf tenderness and no pedal edema Neuro: SENSORIUM/ORIENTATION: Yes oriented to person, Yes oriented to place and Yes oriented to time Skin: COMMON NORMALS: no rashes or lesions noted GENERAL SKIN EXAM: no rashes or lesions noted Course Vital Signs: Vital signs: Vital Signs Temperature 97.7 F 08/26/20 14:59 Pulse Rate 58 L 08/26/20 14:59 Respiratory Rate 20 H 08/26/20 14:59 Blood Pressure 173/91 08/26/20 14:59 Pulse Oximetry 99 08/26/20 14:59 MDM - Chest Pain MDM Narrative: Medical decision making narrative: History of known coronary artery disease we will go ahead and admit he had response to sublingual nitro. He has not had any evaluation for some time. Lab Data: Labs: Lab Results 08/26/20 08/26/20 08/26/20 Range/Units 15:10 15:10 15:10 WBC 5.4 (4.0-10.0) 10^3/ uL RBC 4.31 (4.1-5.3) 10^6/u L Hgb 12.8 (11.7-16.6) g/dL Hct 39.5 L (42.0-52.0) % MCV 91.6 (80-94) fL MCH 29.7 (28.0-34.0) pg MCHC 32.4 (30.0-36.0) g/dL RDW 12.5 (12.1-15.1) % Plt Count 210 (130-400) 10^3/c mm MPV 10.3 (7.4-10.4) fL Neut % (Auto) 63.3 % Lymph % (Auto) 22.0 % [place] % (Auto) 12.1 % Eos % (Auto) 1.5 % Baso % (Auto) 0.7 % Neut # (Auto) 3.39 (1.8-7.7) 10^3/u L Lymph # (Auto) 1.2 (0.8-4.8) 10^3/u L [place] # (Auto) 0.7 (0.2-0.9) 10^3/u L Eos # (Auto) 0.1 (0.0-0.8) 10^3/u L Baso # (Auto) 0.0 (0.0-0.1) 10^3/u L Nucleated RBC % (a uto) 0 % Nucleated RBCs # 0.0 /100WBC Sodium 134 L (136-145) mmol/L Potassium 4.0 (3.5-5.1) mmol/L Chloride 97 L (98-107) mmol/L Carbon Dioxide 29 (22-29) mmol/L Anion Gap 12.0 (5-19) BUN 13 (8-23) mg/dL Creatinine 1.8 H (0.7-1.2) mg/dL GFR Calculation Not Reportable Glucose 93 (65-115) mg/dL Calculated Osmolal ity 278 L (285-295) mOsm/k g Calcium 8.8 (8.5-10.5) mg/dL Total Bilirubin 0.2 (0.15-1.2) mg/dL AST 17 (0-40) U/L ALT 14 (0-41) U/L Alkaline Phosphata se 88 (40-130) IU/L Troponin T Baselin e 19 H (0-15) ng/L Total Protein 6.3 L (6.6-8.7) g/dL Albumin 3.9 (3.5-5.2) g/dL Globulin 2.4 (1.3-4.6) g/dL Discharge Plan Discharge Clinical Impression: Coronary artery disease, COPD (chronic obstructive pulmonary disease), Benign essential HTN Condition: Stable Prescriptions: No Action cetirizine 10 mg tablet 10 mg PO DAILY RF: 0 donepezil 10 mg tablet 10 mg PO BEDTIME RF: 0 lisinopril 20 mg tablet 20 mg PO BID RF: 0 prochlorperazine maleate 10 mg tablet 10 mg PO Q8H PRN (Reason: n/v) RF: 0 omeprazole 40 mg capsule,delayed release(DR/EC) 40 mg PO DAILY RF: 0 tramadol 50 mg tablet 50 mg PO Q6H PRN (Reason: Pain) RF: 0 acetaminophen 500 mg Tablet 1,000 mg PO Q6H PRN (Reason: Pain) RF: 0 meclizine 25 mg tablet 25 mg PO TID PRN (Reason: Dizziness) RF: 0 ferrous sulfate 325 mg (65 mg iron) Tablet 325 mg PO DAILY RF: 0 nitroglycerin 0.4 mg tablet, sublingual 0.4 mg sublingual PRN RF: 0 gabapentin 300 mg capsule 300 mg PO TID RF: 0 azelastine 137 mcg (0.1 %) aerosol,spray 2 spray intranasal BID RF: 0 albuterol sulfate [Ventolin HFA] 90 mcg/actuation HFA aerosol inhaler 2 puff inhalation Q4H PRN (Reason: Shortness Of Breath) RF: 0 diphenhydramine-acetaminophen [Acetaminophen PM] 25-500 mg Tablet 1 tab PO BEDTIME RF: 0 fluticasone propionate 50 mcg/actuation spray,suspension 2 spray intranasal DAILY RF: 0 Ex-Lax Maximum Strength 25 mg Tablet 25 mg PO DAILY RF: 0 dicyclomine 10 mg Capsule 10 mg PO TID PRN (Reason: Pain) RF: 0 cholecalciferol (vitamin D3) 1,250 mcg (50,000 unit) Capsule 1,250 mcg PO Q7D RF: 0 Triple Antibiotic 3.5mg-400 unit- 5,000 unit/gram Ointment See Rx Instructions .ROUTE .COMPLEX RF: 0 furosemide 20 mg Tablet 20 mg PO DAILY RF: 0 Coding Level of Care Code ED Tub Wash Operator for Chg Fwd Exam Comprehensive
[2020-08-26 15:37] LABS: Basophils % 0.7 %; Eosinophils # 0.1 10^3/uL (0.0-0.8); Eosinophils % 1.5 %; Hematocrit 39.5 % (42.0-52.0); Hemoglobin 12.8 g/dL (11.7-16.6); Lymphocytes # 1.2 10^3/uL (0.8-4.8); Mean Corpuscular HGB Conc 32.4 g/dL (30.0-36.0); Mean Corpuscular Hemoglobin 29.7 pg (28.0-34.0); Mean Corpuscular Volume 91.6 fL (80-94); Mean Platelet Volume 10.3 fL (7.4-10.4); Monocytes # 0.7 10^3/uL (0.2-0.9); Monocytes % 12.1 %; Neutrophils # 3.39 10^3/uL (1.8-7.7); Neutrophils % 63.3 %; Nucleated Red Blood Cells % 0 %; Platelet Count 210 10^3/cmm (130-400); Red Blood Count 4.31 10^6/uL (4.1-5.3); Red Cell Distribution Width 12.5 % (12.1-15.1); White Blood Count 5.4 10^3/uL (4.0-10.0)
[2020-08-26 15:54] LABS: Alanine Aminotransferase 14 U/L (0-41); Albumin Level 3.9 g/dL (3.5-5.2); Alkaline Phosphatase 88 IU/L (40-130); Aspartate Amino Transferase 17 U/L (0-40); Blood Urea Nitrogen 13 mg/dL (8-23); Calcium 8.8 mg/dL (8.5-10.5); Carbon Dioxide 29 mmol/L (22-29); Chloride 97 mmol/L (98-107); Globulin 2.4 g/dL (1.3-4.6); Glucose 93 mg/dL (65-115); Osmolality Calculated 278 mOsm/kg (285-295); Sodium 134 mmol/L (136-145); Total Bilirubin 0.2 mg/dL (0.15-1.2); Total Protein 6.3 g/dL (6.6-8.7)
[2020-08-26 16:01] LABS: Troponin(5th) Baseline 19 ng/L (0-15)
[2020-08-26] MEDS: morphine 4 mg/mL SDV 1 mL IVP (16:35)
[2020-08-26] MEDS: nitroglycerin 1 gm/inch oint Pkt 1 INCH TOPICAL (16:35)
[2020-08-26] MEDS: enoxaparin 100 mg/mL Syringe SUBCUT (16:35)
[2020-08-26] MEDS: aspirin 81 mg Chew Tablet 324 MG PO (16:35)
--- NOTE | 2020-08-26 17:19 | ECG_ITS ---
Test Date: 2020-08-26 Pat Name: Jareth Mcqueen Department: Room: Gender: Male Scientific Writer: : 1940 Requested By: Drew Fleming Order Number: [id number] Marti MD: COLE HENDRICKS Measurements Intervals [place] Rate: 68 P: 66 [place]: 187 QRS: 34 QRSD: 82 T: 58 QT: 379 QTc: 403 Interpretive Statements SINUS RHYTHM Compared to ECG 08/26/2020 15:04:32 Sinus bradycardia no longer present Electronically Signed On 08-26-2020 19:59:08 ETHYL BLENDER by COLE HENDRICKS [id number]
--- NOTE | 2020-08-26 17:57 | P.HP_ITS ---
Providers/Chief Complaint Admitting Physician: Junie Taylor MD Primary Care Provider: Siva Montoya MD Chief Complaint: CHEST PAIN History of Present Illness Jareth Mcqueen is a 80 year old male with PMHx noted below presents from assisted living facility, presents via ambulance for evaluation of chest pain that began around 2 PM this afternoon. Patient describes it as pain across his chest, increased with palpation of his chest wall, with associated dizziness/lightheadedness, shortness of breath. He states that he has had prior episodes of chest pain but not quite as severe or as long lasting as this morning. He took 3 sublingual nitroglycerin tablets with some improvement but not complete resolution of pain and he got an additional 1 sublingual tablet given by EMS on the way to the hospital. He does have a known history of CAD with prior stenting x3, states that last stent was placed about 15 years ago. He does not routinely follow-up with a svp chief marketing officer and cannot recall when he last had cardiac work-up done. Per review of medical records it seems that he has presented to our facility several times in the past with similar complaints, was scheduled to have an outpatient stress test in 2014 though I cannot find any record of this, there is an echo from that time which shows ejection fraction of 60% and grade 1 diastolic dysfunction. He is a good historian and is able to provide direct history, very pleasant and easy to engage with, does not appear to be in any overt distress though does verbalize some discomfort in the substernal area during my encounter. He has already received some morphine, Nitropaste and full dose aspirin. He has also received a therapeutic dose of Lovenox x1. Initial troponin is elevated at 19, repeat troponin is currently p ending. Further work-up indicates a normal CBC, normal electrolytes, BUN of 13 with a creatinine of 1.8. Chest x-ray is unremarkable, no noted EKG changes x2, he is hypertensive with most recent blood pressure 173/86, intermittently bradycardic though rhythm is sinus. He is currently on room air and afebrile. He denies exposure to known COVID-19 positive individuals though relates that he recently lost his son approximately 6 weeks ago to this infection. He will need further work-up for chest pain given his underlying history, advanced age including stress testing. Review of Systems Const: Reports: fatigue; Denies: fever(s) or chills Eyes: Denies: change in vision ENMT: Denies: odynophagia Card: Reports: chest pain, swelling of feet/ankles (chronic, intermittent), lightheadedness and dyspnea on exertion; Denies: palpitations Resp: Reports: dyspnea; Denies: productive cough or non-productive cough GI: Denies: abdominal pain, nausea, vomiting, hematemesis or hematochezia : Denies: difficulty urinating Musc: Denies: back pain Skin/Breast: Denies: rash Neuro: Reports: dizziness (chronic, intermittent) Psych: Denies: anxiety Medications/Allergies Home Medications Medication Instructions Recorded Confirmed Last Taken Type acetaminophen 1,000 mg PO Q6H PRN 04/10/20 06/27/20 06/27/20 06:40 History albuterol sulfate [Ventolin HFA] 2 puff INHALATION Q4H PRN 04/10/20 06/27/20 Unknown History azelastine 2 spray INTRANASAL BID 04/10/20 06/27/20 06/27/20 History cetirizine 10 mg PO DAILY 04/10/20 06/27/20 06/27/20 History cholecalciferol (vitamin D3) 1,250 mcg PO Q7D 04/10/20 06/27/20 04/05/20 History dicyclomine 10 mg PO TID PRN 04/10/20 06/27/20 Unknown History diphenhydramine-acetaminophen 1 tab PO BEDTIME 04/10/20 06/27/20 06/26/20 History [Acetaminophen PM] donepezil 10 mg PO BEDTIME 04/10/20 06/27/20 06/26/20 History ferrous sulfate 325 mg PO DAILY 04/10/20 06/27/20 06/27/20 History fluticasone propionate 2 spray INTRANASAL DAILY 04/10/20 06/27/20 06/27/20 History gabapentin 300 mg PO TID 04/10/20 06/27/20 06/27/20 History lisinopril 20 mg PO BID 04/10/20 06/27/20 06/27/20 History meclizine 25 mg PO TID PRN 04/10/20 06/27/20 03/02/20 History nitroglycerin 0.4 mg SUBLINGUAL PRN 04/10/20 06/27/20 06/27/20 History omeprazole 40 mg PO DAILY 04/10/20 06/27/20 06/27/20 History prochlorperazine maleate 10 mg PO Q8H PRN 04/10/20 06/27/20 Unknown History sennosides [Ex-Lax Maximum 25 mg PO DAILY 04/10/20 06/27/20 06/26/20 History Strength] tramadol 50 mg PO Q6H PRN 04/10/20 06/27/20 03/06/20 History furosemide 20 mg PO DAILY 06/27/20 06/27/20 06/27/20 History [id number] See Rx Instructions .ROUTE .COMPLEX 06/27/20 06/27/20 Unknown History [Triple Antibiotic] Allergies Allergy/AdvReac Type Severity Reaction Status Date / Time No Known Allergies Allergy Verified 08/26/20 15:07 PFSH Acute PFSH: Medical History (Updated 08/26/20 @ 18:27 by Junie Taylor MD) Benign essential HTN Chronic diastolic CHF (congestive heart failure) COPD (chronic obstructive pulmonary disease) Coronary artery disease Stage 3a chronic kidney disease Surgical History (Updated 08/26/20 @ 18:11 by Junie Taylor MD) History of coronary artery stent placement -x 3 Family History (Updated 08/26/20 @ 18:11 by Junie Taylor MD) Father CAD (coronary artery disease) Mother CAD (coronary artery disease) Social History (Updated 08/26/20 @ 18:12 by Junie Taylor MD) Smoking and tobacco status: former smoker Quit status (tobacco): has quit using tobacco Year quit tobacco: 30 yrs ago Alcohol intake: never Substance/Drug Use: never Housing: Assisted Living Facility Vitals/I&O/Wt Last Vital Signs Temp 97.7 F 08/26/20 14:59 Pulse 59 L 08/26/20 17:07 Resp 16 08/26/20 17:07 BP 173/86 08/26/20 17:07 Pulse Ox 97 08/26/20 17:07 Weight last 48 hrs Weight 98.43 kg Physical Exam Const: COMMON NORMALS: no acute distress, patient oriented x3 and alert GENERAL APPEARANCE: cooperative and comfortable ORIENTATION/CONSCIOUSNESS: Yes awake OTHER: -very pleasant, looks appropriate for age HENMT: COMMON NORMALS: normocephalic, atraumatic and moist oral mucous membranes HEAD & SCALP: normocephalic and atraumatic GENERAL EAR: hearing grossly impaired Eye: COMMON NORMALS: Equal, round and reactive pupils present, EOMs intact bilaterally and conjunctivae normal CONJUNCTIVA: Yes conjunctivae normal PUPIL: Yes Equal, round and reactive pupils present Neck/C-Spine: COMMON NORMALS: full ROM GENERAL: Yes normal visual inspection and Yes trachea midline Chest: COMMONS NORMALS: normal inspection of the chest OTHER: -tenderness to palpation of anterior chest Resp: COMMON NORMALS: normal respiratory effort, No retractions, No use of accessory muscles and clear to auscultation bilaterally EFFORT & INSPECTION: Yes able to speak in complete sentences, Yes symmetric chest movement and No tachypneic AUSCULTATION: clear to auscultation bilaterally OTHER: -on RA Cardio: COMMON NORMALS: regular rate, regular rhythm, S1 normal heart sound present, S2 normal heart sound present and No murmurs present (Cardio) RATE: regular rate RHYTHM: regular rhythm HEART SOUNDS: S1 normal heart sound present and S2 normal heart sound present GI: COMMON NORMALS: Normal to inspection, nondistended, normoactive bowel sounds present, Soft to palpation and non-tender PALPATION: Yes Soft to palpation Extremity: COMMON NORMALS: normal to inspection, full ROM, no clubbing, cyanosis or edema and no pedal edema NARRATIVE EXTREMITY EXAM: -compression stockings on bilateral LEs Neuro: COMMON NORMALS: patient oriented x3, moves all extremities, no focal motor deficits and no sensory deficits noted SENSORIUM/ORIENTATION: Yes alert Psych: COMMON NORMALS: mental status grossly normal, Normal thought process present, cooperative, normal affect and speech normal SPEECH: Yes normal speech THOUGHT PROCESS: Normal thought process present Skin: COMMON NORMALS: no rashes or lesions noted, no jaundice, no petechiae and no mottling GENERAL SKIN EXAM: no rashes or lesions noted Data : 08/26/20 15:10 08/26/20 15:10 A&P Assessment and plan (1) Chest pain: -has known hx of CAD with prior stenting x 3, last done about 15 yrs ago per patient -chest pain does have some atypical features but given hx of CAD, HTN, prior OH; needs further workup -trend troponins, serial ECGs -telemetry monitoring -monitor vital signs -order Echo -check lipid panel, A1c, TSH -received therapeutic lovenox in ED -DEBBY -order nuclear stress testing, NPO after midnight Status: Acute Qualifiers: Chest pain type: unspecified Qualified Code(s): R07.9 - Chest pain, unspecified (2) SAVANNAH (acute kidney injury): -SAVANNAH on CKD stage 3a -baseline Cr appears to be around 1.2-1.3 -gentle IVF hydration -renally dose meds, avoid nephrotoxins; continue to monitor renal function Status: Acute (3) Benign essential HTN: -currently hypertensive -monitor vital signs -hold ACEi, diuretics due to renal impairment; no BB due to bradycardia. Hydralazine for now Status: Chronic (4) COPD (chronic obstructive pulmonary disease): -no acute exacerbation -not oxygen dependent at baseline -inhaler treatments as needed Status: Chronic Qualifiers: COPD type: unspecified COPD Qualified Code(s): J44.9 - Chronic obstructive pulmonary disease, unspecified (5) Coronary artery disease: -s/p stenting x 3 Status: Chronic Qualifiers: Coronary Disease-Associated Artery/Lesion type: [place] artery [place] vs. transplanted heart: [place] heart Associated angina: angina presence unspecified Qualified Code(s): I25.10 - Atherosclerotic heart disease of [place] coronary artery without angina pectoris Additional A&P Information -Chronic diastolic CHF; no apparent exacerbation -NPO after midnight -GI ppx with PPI -DVT ppx with heparin -Dispo: return to [facility]) -Code status: FULL code -admit to med-surg, no CSU beds Attestations Medical Necessity Statement*: [facility]'s hospital stay will require greater than 2 midnights for workup of chest pain, management of SAVANNAH. Time Spent in Patient Care: Greater than 35 minutes (>than 50% of time spent in counselling and/or direct pt care on unit) . Coding Level of Care Code Acute Tree Marker for Chg Fwd Diagnoses Chest pain R07.9 Chest pain type: unspecified SAVANNAH (acute kidney injury) N17.9 Benign essential HTN I10 COPD (chronic obstructive pulmonary disease) J44.9 COPD type: unspecified COPD Coronary artery disease I25.10 Coronary Disease-Associated Artery/Lesion type: [place] artery [place] vs. transplanted heart: [place] heart Associated angina: angina presence unspecified
[2020-08-26 18:45] LABS: Troponin 5 2HR 18.33 ng/L (0-15)
--- NOTE | 2020-08-26 18:45 | PC.NURSE ---
Attempted to call report. Nurse not available
[2020-08-26 18:46] LABS: Troponin 5 2HR Delta -0.67 ABS# (0-10)
[2020-08-26 21:30] LABS: Troponin 5 6HR 17.91 ng/L (0-15)
[2020-08-26 21:38] LABS: Troponin 5 6HR Delta -1.09 ng/L (0-12)
[2020-08-26] MEDS: sodium chloride 0.9% 1,000 ML 75 ML IV (22:02)
[2020-08-26] MEDS: donepezil 5 MG Tablet 10 MG PO (22:02)
[2020-08-26] MEDS: gabapentin 300 mg Capsule PO (22:03)
[2020-08-26] MEDS: docusate sodium 100 mg Capsule PO (22:03)
[2020-08-26] MEDS: sennosides 8.6 mg Tablet 17.2 MG PO (22:03)
[2020-08-26] MEDS: hyDRALAzine 25 mg Tablet PO (22:04)
[2020-08-27] VITALS (9 sets, daily range): BP systolic 131–194; BP diastolic 61–97; PULSE 63–91; RESP 16–20; TEMP 36.2–37.1; O2SAT 96–99
[2020-08-27 05:46] LABS: Basophils % 0.6 %; Eosinophils # 0.1 10^3/uL (0.0-0.8); Eosinophils % 2.4 %; Hematocrit 35.1 % (42.0-52.0); Hemoglobin 11.5 g/dL (11.7-16.6); Lymphocytes # 1.2 10^3/uL (0.8-4.8); Lymphocytes % 21.8 %; Mean Corpuscular HGB Conc 32.8 g/dL (30.0-36.0); Mean Corpuscular Hemoglobin 29.7 pg (28.0-34.0); Mean Corpuscular Volume 90.7 fL (80-94); Mean Platelet Volume 9.2 fL (7.4-10.4); Monocytes # 0.8 10^3/uL (0.2-0.9); Monocytes % 15.6 %; Neutrophils # 3.16 10^3/uL (1.8-7.7); Neutrophils % 59.2 %; Nucleated Red Blood Cells % 0 %; Platelet Count 210 10^3/cmm (130-400); Red Blood Count 3.87 10^6/uL (4.1-5.3); Red Cell Distribution Width 12.4 % (12.1-15.1); White Blood Count 5.3 10^3/uL (4.0-10.0)
--- NOTE | 2020-08-27 06:00 | ECG_ITS ---
[facility] Test Date: 2020-08-27 Pat Name: Jareth Mcqueen Department: Room: 259 Gender: Male Career Development Counselor: Cristiane [place] : 1940 Requested By: Junie Taylor Order Number: [id number] MD: Sabas Velez M.D. Interpretive Statements NAME OF STUDY: LEXISCAN SESTAMIBI STRESS TEST INDICATION: [Chest Pain] Procedure: At the baseline, the blood pressure was 152/92 mmHg,with a heart rate of 70 bpm. The electrocardiogram showed a normal sinus rhythm, normal axis with normal ST and T's. The Lexiscan was infused over a duration of 20 seconds. A total of 0.4 mg of Lexiscan was infused. The stress phase was continued for a total of 5 minutes. Heart rate at the end of stress phase was 96 bpm, with a blood pressure of 135/76 mmHg. The EKG at the peak infusion revealed sinus rhythm with no significant ST-T wave changes. Sestamibi was injected 20 seconds after Lexiscan infusion. Blood pressure at the end of recovery phase was 144/80 mmHg, with a heart rate of 95 bpm. Conclusion: 1. Normal EKG response to Lexiscan infusion. 2. No Lexiscan induced chest pain or cardiac arrhythmia. 3. Normal blood pressure and heart rate response. 4. Sestamibi/sestamibi perfusion scan pending; see separate report. Electronically Signed On 09-06-2020 9:59:25 ORACLE IAM CONSULTANT by Sabas Velez M.D. [id number]
[2020-08-27 06:21] LABS: Alanine Aminotransferase 13 U/L (0-41); Albumin Level 3.6 g/dL (3.5-5.2); Alkaline Phosphatase 78 IU/L (40-130); Anion Gap 12.8 (5-19); Aspartate Amino Transferase 16 U/L (0-40); Blood Urea Nitrogen 15 mg/dL (8-23); Calcium 8.9 mg/dL (8.5-10.5); Carbon Dioxide 28 mmol/L (22-29); Chloride 99 mmol/L (98-107); Globulin 2.5 g/dL (1.3-4.6); Glucose 85 mg/dL (65-115); Osmolality Calculated 282 mOsm/kg (285-295); Potassium 3.8 mmol/L (3.5-5.1); Sodium 136 mmol/L (136-145); Total Bilirubin 0.3 mg/dL (0.15-1.2); Total Protein 6.1 g/dL (6.6-8.7)
[2020-08-27 06:29] LABS: Chol HDL Ratio 5.69 mg/dL (1.0-5.00); Cholesterol 182 mg/dL (0-200); HDL Cholesterol 32 mg/dL (60-100); LDL Cholesterol Calculated 118 mg/dL (50-129); LDL HDL Ratio 3.69 RATIO (0.00-3.22); Triglycerides 159 mg/dL (0-150)
[2020-08-27 06:32] LABS: Thyroid Stimulating Hormone 5.81 uIU/mL (0.27-4.20)
[2020-08-27] MEDS: acetaminophen 325 mg Tablet 650 MG PO ×2 (06:54→16:32)
--- NOTE | 2020-08-27 07:00 | USCV_ITS ---
Jareth Mcqueen Age: 80 Gender: M : 1940 Exam Date: 08/27/2020 06:03 Ordering Phys: Junie Taylor MD Technologist: Raleigh Chau [place] [facility] [place]: NSTEMI BP: 131 / 71 HR: 67 Rhythm: Sinus Technical Quality: Adequate MEASUREMENTS (Male / Female) Normal Values 2D ECHO LV Diastolic Diameter PLAX 5.4 cm 4.2 - 5.9 / 3.9 - 5.3 cm LV Systolic Diameter PLAX 3.3 cm IVS Diastolic Thickness 1.2 cm 0.6 - 1.0 / 0.6 - 0.9 cm IVS Systolic Thickness 1.5 cm LVPW Diastolic Thickness 1.0 cm 0.6 - 1.0 / 0.6 - 0.9 cm LVPW Systolic Thickness 1.6 cm LVOT Diameter 2.1 cm LV Ejection Fraction 2D Teich 69.2 % LV Ejection Fraction MOD 2C 66.4 % LV Ejection Fraction 2C AL 68.0 % LA Diameter 4.1 cm LA Width 3.5 cm LA Height 5.1 cm RA Width 3.5 cm RA Height 5.0 cm Aorta at Sinotubular Diameter 2.5 cm M-MODE LV Diastolic Diameter MM 5.6 cm 4.2 - 5.9 / 3.9 - 5.3 cm LV Systolic Diameter MM 2.9 cm LV Ejection Fraction MM Teich 80.0 % IVS Diastolic Thickness MM 1.2 cm 0.6 - 1.0 / 0.6 - 0.9 cm IVS Systolic Thickness MM 1.8 cm LVPW Diastolic Thickness MM 0.9 cm 0.6 - 1.0 / 0.6 - 0.9 cm LVPW Systolic Thickness MM 1.8 cm RV Diastolic Diameter MM 2.1 cm Aortic Annulus Diameter 4.0 cm LA Ao Ratio MM 1.1 MV E Point Septal Separation 1.3 cm DOPPLER AV Peak Velocity 135.0 cm/s LVOT Peak Velocity 97.0 cm/s AV Area Cont Eq vti 2.3 cm squared AV Area Cont Eq pk 2.4 cm squared MV Area PHT 5.0 cm squared Mitral E to A Ratio 0.8 MV E' Velocity 50.5 cm/s Mitral E to MV E' Ratio 9.3 Mitral E to LV E' Lateral Ratio 8.6 Mitral E to LV E' Septal Ratio 10.1 TR Peak Velocity 156.7 cm/s TR Peak Gradient 9.8 mmHg TR Mean Velocity 108.6 cm/s TR Mean Gradient 5.7 mmHg TR Velocity Time Integral 40.3 cm TV Peak E Velocity 95.0 cm/s Right Atrial Pressure 3.0 mmHg Pulmonary Artery Systolic Pressu 12.8 mmHg PV Peak Velocity 73.0 cm/s RV Acceleration Time 0.1 s FINDINGS Left Ventricle Normal left ventricular cavity size. Normal left ventricular wall thickness. Normal left ventricular systolic function. Left ventricular ejection fraction is estimated at 55-60 %. Although no diagnostic regional wall motion abnormality could be identified, this possibility cannot be completely excluded based on the study. Normal diastolic function. Right Ventricle Normal right ventricular size and systolic function. Right ventricular systolic pressure 12.8 mmHg. Right Atrium Normal right atrial size. Left Atrium Mildly increased left atrial size. Mitral Valve Mild mitral annular calcification. Mildly thickened mitral valve. No mitral valve stenosis. Trace mitral valve regurgitation. Aortic Valve Structurally normal trileaflet aortic valve. No aortic valve stenosis. No aortic valve regurgitation. Tricuspid Valve Tricuspid valve not well visualized. Pulmonic Valve Pulmonic valve not well visualized. No pulmonary valve stenosis. No significant pulmonary valve regurgitation. Pericardium No pericardial effusion. Aorta Normal size aortic root and proximal ascending aorta. CONCLUSIONS 1. This is a technically difficult study. 2. Normal left ventricular cavity size, wall thickness and systolic function. Left ventricular ejection fraction is estimated at 55-60 %. Although no diagnostic regional wall motion abnormality could be identified, this possibility cannot be completely excluded based on the study. Normal diastolic function. 3. Normal pulmonary artery pressure. 4. When compared to previous echocardiogram dated 06/25/2015, there may not have been any significant change. Lore Barillas MD (Electronically Signed) Final Date: 27 August 2020 16:36 S
--- NOTE | 2020-08-27 07:53 | PC.NURSE ---
Pt taken to L by Ayesha pt transport.
[2020-08-27] MEDS: regadenoson 0.4 Mg/5 ml Syringe IVP (08:21)
--- NOTE | 2020-08-27 09:52 | PC.RESP ---
Pulmonary Rehab information sent to patient.
[2020-08-27] MEDS: cetirizine 10 mg Tablet PO (09:57)
[2020-08-27] MEDS: pantoprazole DR 40 mg Tablet PO (09:57)
[2020-08-27] MEDS: hyDRALAzine 25 mg Tablet PO ×3 (09:57→21:42)
[2020-08-27] MEDS: fluticasone nasal spray 16gm Btl 2 SPRAY INTRANASAL (09:58)
[2020-08-27] MEDS: gabapentin 300 mg Capsule PO ×3 (09:58→21:42)
[2020-08-27] MEDS: ferrous sulfate EC 325 mg Tablet PO (09:58)
[2020-08-27] MEDS: heparin 5,000 unit/mL INJ 1 mL 5000 UNIT SUBCUT ×2 (09:58→21:42)
[2020-08-27] MEDS: docusate sodium 100 mg Capsule PO ×2 (09:58→17:29)
--- NOTE | 2020-08-27 12:30 | PM.PN ---
Subjective Subjective: Interval history: Patient sitting up, seen after having had nuclear stress testing done, no apparent distress, no acute overnight events reported. Hypertensive, no complaints, chest pain free. Medications: Reviewed: Yes Medication Review Details: Active Medications Generic Name Dose Route Start Last Admin Trade Name Freq PRN Reason Stop Dose Admin Acetaminophen 650 mg 08/26/20 20:37 08/27/20 06:54 Acetaminophen 32 5 Mg Tablet PO 650 mg Q6H PRN Administration Mild/Mod Pain Or Temp >/= 101 Albuterol Sulfate 2 puff 08/26/20 20:37 Albuterol 8 Gm M di INHALATION Q4H PRN Shortness Of [place] th Aminophylline 25 mg 08/27/20 06:49 Aminophylline 25 Mg/Ml Sdv 10 Ml IVP 08/28/20 06:48 Q2M PRN see dose instruct ions Cetirizine HCl 10 mg 08/27/20 09:00 08/27/20 09:57 Cetirizine 10 Mg Tablet PO 10 mg DAILY MARCY Administration Docusate Sodium 100 mg 08/26/20 20:37 08/27/20 09:58 Docusate Sodium 100 Mg Capsule PO 100 mg BID MARCY Administration Donepezil HCl 10 mg 08/26/20 21:00 08/26/20 22:02 Donepezil 5 Mg T ablet PO 10 mg BEDTIME MARCY Administration Ferrous Sulfate 325 mg 08/27/20 09:00 08/27/20 09:58 Ferrous Sulfate Ec 325 Mg Tablet PO 325 mg DAILY MARCY Administration Fluticasone Propio alisha 2 spray 08/27/20 09:00 08/27/20 09:58 Fluticasone Nasa l Mull[place] 16gm Btl INTRANASAL 2 spray DAILY MARCY Administration Gabapentin 300 mg 08/26/20 21:00 08/27/20 09:58 Gabapentin 300 M g Capsule PO 300 mg TID MARCY Administration Heparin Sodium (Be ef Lung) 5,000 unit 08/26/20 20:37 08/27/20 09:58 Heparin 5,000 Un it/Ml Inj 1 Ml SUBCUT 5,000 unit Q12H MARCY Administration Hydralazine HCl 25 mg 08/26/20 21:00 08/27/20 09:57 Hydralazine 25 M g Tablet PO 25 mg TID MARCY Administration Sodium Chloride 1,000 mls @ 75 ml s/hr 08/26/20 20:37 08/26/20 22:02 Sodium Chloride 0.9% IV 75 mls/hr .[id number] MARCY Administration Meclizine HCl 25 mg 08/26/20 20:37 Meclizine 25 Mg Tablet PO TID PRN Dizziness Morphine Sulfate 2 mg 08/26/20 20:37 Morphine 4 Mg/Ml Sdv 1 Ml IVP Q4H PRN SEVERE PAIN Nitroglycerin 0.4 mg 08/26/20 20:37 Nitroglycerin 0. 4 Mg Sublingual Ta blet SUBLINGUAL PRN MARCY Nitroglycerin 0.4 mg 08/27/20 06:49 Nitroglycerin 0. 4 Mg Sublingual Ta blet SUBLINGUAL 08/28/20 06:48 Q5M PRN CHEST PAIN Ondansetron HCl 4 mg 08/26/20 20:37 Ondansetron 2 Mg /Ml Sdv 2 Ml IVP Q6H PRN NAUSEA AND VOMITI NG Ondansetron HCl 4 mg 08/27/20 06:49 Ondansetron 2 Mg /Ml Sdv 2 Ml IVP Q2M PRN NAUSEA Pantoprazole Sodiu m 40 mg 08/27/20 09:00 08/27/20 09:[address] 40 Mg Tablet PO 40 mg DAILY MARCY Administration Senna 17.2 mg 08/26/20 21:00 08/26/20 22:03 Sennosides 8.6 M g Tablet PO 17.2 mg BEDTIME MARCY Administration Tramadol HCl 50 mg 08/26/20 20:37 Tramadol 50 Mg T ablet PO Q6H PRN moderate pain No Known Allergies Allergy (Verified 08/26/20 15:07) Vitals/I&O/Wt Last Vital Signs Temp 97.2 F L 08/27/20 11:17 Pulse 75 08/27/20 11:17 Resp 18 08/27/20 11:17 BP 180/88 08/27/20 11:17 Pulse Ox 98 08/27/20 11:17 08/26/20 08/27/20 08/27/20 22:59 06:59 14:59 Output Total 125 / 125 250 / 250 Balance -125 / -125 -250 / -250 Weight last 48 hrs Weight 98.883 kg Weight 98.43 kg Physical Exam Const: COMMON NORMALS: no acute distress, patient oriented x3 and alert GENERAL APPEARANCE: cooperative and comfortable ORIENTATION/CONSCIOUSNESS: Yes awake OTHER: -very pleasant, looks appropriate for age, sitting up in bed HENMT: COMMON NORMALS: normocephalic, atraumatic and moist oral mucous membranes HEAD & SCALP: normocephalic and atraumatic GENERAL EAR: hearing grossly impaired Eye: COMMON NORMALS: Equal, round and reactive pupils present, EOMs intact bilaterally and conjunctivae normal CONJUNCTIVA: Yes conjunctivae normal PUPIL: Yes Equal, round and reactive pupils present Neck/C-Spine: COMMON NORMALS: full ROM GENERAL: Yes normal visual inspection and Yes trachea midline Chest: COMMONS NORMALS: normal inspection of the chest and normal palpation of entire chest wall Resp: COMMON NORMALS: normal respiratory effort, No retractions, No use of accessory muscles and clear to auscultation bilaterally EFFORT & INSPECTION: Yes able to speak in complete sentences, Yes symmetric chest movement and No tachypneic AUSCULTATION: clear to auscultation bilaterally OTHER: -on RA Cardio: COMMON NORMALS: regular rate, regular rhythm, S1 normal heart sound present, S2 normal heart sound present and No murmurs present (Cardio) RATE: regular rate RHYTHM: regular rhythm HEART SOUNDS: S1 normal heart sound present and S2 normal heart sound present GI: COMMON NORMALS: Normal to inspection, nondistended, normoactive bowel sounds present, Soft to palpation and non-tender PALPATION: Yes Soft to palpation Extremity: COMMON NORMALS: normal to inspection, full ROM, no clubbing, cyanosis or edema and no pedal edema NARRATIVE EXTREMITY EXAM: -compression stockings on bilateral LEs Neuro: COMMON NORMALS: patient oriented x3, moves all extremities, no focal motor deficits and no sensory deficits noted SENSORIUM/ORIENTATION: Yes alert Psych: COMMON NORMALS: mental status grossly normal, Normal thought process present, cooperative, normal affect and speech normal SPEECH: Yes normal speech THOUGHT PROCESS: Normal thought process present Skin: COMMON NORMALS: no rashes or lesions noted, no jaundice, no petechiae and no mottling GENERAL SKIN EXAM: no rashes or lesions noted Data : 08/27/20 04:51 08/27/20 04:51 A&P Assessment and plan (1) Chest pain: -has known hx of CAD with prior stenting x 3, last done about 15 yrs ago per patient -chest pain does have some atypical features but given hx of CAD, HTN, prior [place]; needs further workup -elevated troponins with no significant delta, serial ECGs with no noted significant changes -telemetry monitoring -noted hypertension, continue to monitor vital signs -Echo: EF=55-60%, no RWMA, trace MR -noted lipid panel, TSH -received therapeutic lovenox in ED -DEBBY -negative nuclear stress testing Status: Acute Qualifiers: Chest pain type: unspecified Qualified Code(s): R07.9 - Chest pain, unspecified (2) SAVANNAH (acute kidney injury): -SAVANNAH on CKD stage 3a -baseline Cr appears to be around 1.2-1.3 -gentle IVF hydration -renally dose meds, avoid nephrotoxins; continue to monitor renal function, improved today Status: Acute (3) Benign essential HTN: -currently hypertensive -continue to monitor vital signs -resume ACEi, lasix, hold HCTZ due to renal impairment; no BB due to bradycardia. Hydralazine Status: Chronic (4) COPD (chronic obstructive pulmonary disease): -no acute exacerbation -not oxygen dependent at baseline -inhaler treatments as needed Status: Chronic Qualifiers: COPD type: unspecified COPD Qualified Code(s): J44.9 - Chronic obstructive pulmonary disease, unspecified (5) Coronary artery disease: -s/p stenting x 3 Status: Chronic Qualifiers: Associated angina: angina presence unspecified Coronary Disease-Associated Artery/Lesion type: [place] artery [place] vs. transplanted heart: [place] heart Qualified Code(s): I25.10 - Atherosclerotic heart disease of [place] coronary artery without angina pectoris Additional A&P Information -Chronic diastolic CHF; no apparent exacerbation -cardiac diet as tolerated -GI ppx with PPI -DVT ppx with heparin -Dispo: return to [facility]) -Code status: FULL code Attestations Medical Necessity Statement*: Patient requires hospitalization for continued monitoring of renal function, BP given hypertension and appropriate optimization of medications. Time Spent in Patient Care: 16 - 35 minutes (>than 50% of time spent in counselling and/or direct pt care on unit). Coding Level of Care Code Acute Critical Power Technician for g Fwd Exam Comprehensive Diagnoses Chest pain R07.9 Chest pain type: unspecified SAVANNAH (acute kidney injury) N17.9 Benign essential HTN I10 COPD (chronic obstructive pulmonary disease) J44.9 COPD type: unspecified COPD Coronary artery disease I25.10 Associated angina: angina presence unspecified Coronary Disease-Associated Artery/Lesion type: [place] artery [place] vs. transplanted heart: [place] heart
[2020-08-27] MEDS: lisinopril 20 mg Tablet PO ×2 (13:07→17:29)
[2020-08-27] MEDS: FUROsemide 20 mg Tablet PO (13:07)
--- NOTE | 2020-08-27 20:37 | NMCV_ITS ---
NM vania perf SPECT r/s* [id number] Jareth Mcqueen Age: 80 Gender: M : 1940 Exam Date: 08/27/2020 07:42 Ordering Phys: Junie Taylor MD Technologist: BRAN Chambers Exam Location: [facility] Indications: CHEST PAIN STRESS TEST Please see separate stress test report in [facility] for full findings IMAGE PROTOCOL Rest/Stress 1 Lexiscan Day Radiopharmaceutical Dose (mCi) Administration Site Administered by Rest: Tc-99m 10.8 IV BRAN Chambers Sestamibi Stress:Tc-99m 32.9 IV BRAN Akhtar Sestamibi Rest: 27-Aug-2020 60 Discovery 630 Stress: 27-Aug-2020 30 Discovery 630 0.4mg Lexiscan. Supine position only as patient was unable to lay prone. SPECT RESULTS Technical Quality: Excellent Raw Data Analysis: Normal Image Corrections: No attenuation or motion correction applied Summed Stress Score: 0 Summed Rest Score: 0 Summed Difference Score: 0 PERFUSION FINDINGS There is homogenous uptake of radiotracer throughout the myocardium. No evidence of ischemia is noted. FUNCTIONAL RESULTS (calculated via Gated SPECT) Stress Image LV EF (%): 69 Stress EDV (mL):96 TID: 0.97 Stress ESV (mL):30 FUNCTIONAL FINDINGS: There is normal left ventricular systolic function. IMPRESSIONS 1. Homogenous radiotracer uptake throughout the myocardium. No evidence of ischemia. 2. LV systolic function is normal with EF of 69%. Sabas Velez MD (Electronically Signed) Final Date: 27 August 2020 10:58 S
[2020-08-27] MEDS: donepezil 5 MG Tablet 10 MG PO (21:42)
[2020-08-27] MEDS: sennosides 8.6 mg Tablet 17.2 MG PO (21:42)
[2020-08-28] VITALS (9 sets, daily range): BP systolic 126–178; BP diastolic 75–97; PULSE 69–95; RESP 14–18; TEMP 36.3–36.6; O2SAT 96–98
[2020-08-28 07:04] LABS: Anion Gap 12.7 (5-19); Blood Urea Nitrogen 15 mg/dL (8-23); Calcium 9.2 mg/dL (8.5-10.5); Carbon Dioxide 25 mmol/L (22-29); Chloride 100 mmol/L (98-107); Glucose 98 mg/dL (65-115); Osmolality Calculated 279 mOsm/kg (285-295); Potassium 3.7 mmol/L (3.5-5.1); Sodium 134 mmol/L (136-145)
[2020-08-28] MEDS: cetirizine 10 mg Tablet PO (08:02)
[2020-08-28] MEDS: lisinopril 20 mg Tablet PO (08:02)
[2020-08-28] MEDS: docusate sodium 100 mg Capsule PO (08:02)
[2020-08-28] MEDS: gabapentin 300 mg Capsule PO ×2 (08:02→16:25)
[2020-08-28] MEDS: pantoprazole DR 40 mg Tablet PO (08:02)
[2020-08-28] MEDS: ferrous sulfate EC 325 mg Tablet PO (08:02)
[2020-08-28] MEDS: heparin 5,000 unit/mL INJ 1 mL 5000 UNIT SUBCUT (08:03)
[2020-08-28] MEDS: FUROsemide 20 mg Tablet PO (08:03)
[2020-08-28] MEDS: hyDRALAzine 25 mg Tablet PO ×2 (08:03→16:25)
--- NOTE | 2020-08-28 11:34 | P.DS_ITS ---
Discharge Providers Date of Admission: 08/26/20 16:58 Date of Discharge: August 28, 2020 Attending Provider at Admission: Junie Taylor MD Attending Provider at Discharge: Junie Taylor MD Consults: None Primary Care Provider: Dr. Siva Montoya Diagnoses at Discharge Discharge Diagnosis (1) Chest pain: Status: Resolved Permanent problem details: -has known hx of CAD with prior stenting x 3, last done about 15 yrs ago per patient -chest pain does have some atypical features but given hx of CAD, HTN, prior [place]; needs further workup -elevated troponins with no significant delta, serial ECGs with no noted significant changes -telemetry monitoring -noted hypertension, continue to monitor vital signs -Echo: EF=55-60%, no RWMA, trace MR -noted lipid panel, TSH -received therapeutic lovenox in ED -DEBBY -negative nuclear stress testing Qualifiers: Chest pain type: unspecified Qualified Code(s): R07.9 - Chest pain, unspecified (2) SAVANNAH (acute kidney injury): Status: Resolved Permanent problem details: -SAVANNAH on CKD stage 3a -baseline Cr appears to be around 1.2-1.3 (3) Benign essential HTN: Status: Chronic Permanent problem details: -continue oral antihypertensives (4) COPD (chronic obstructive pulmonary disease): Status: Chronic Permanent problem details: -not oxygen dependent at baseline Qualifiers: COPD type: unspecified COPD Qualified Code(s): J44.9 - Chronic obstr uctive pulmonary disease, unspecified (5) Coronary artery disease: Status: Chronic Permanent problem details: -s/p stenting x 3 Qualifiers: Associated angina: angina presence unspecified Coronary Disease- Associated Artery/Lesion type: [place] artery [place] vs. transplanted heart: [place] heart Qualified Code(s): I25.10 - Atherosclerotic heart disease of [place] coronary artery without angina pectoris Other Information Additional DC diagnoses/information: -Chronic diastolic CHF; no apparent exacerbation Reason for Visit Reason for Visit: CHEST PAIN Hospital Course Hospital Course Patient was admitted to the medical surgical floor and placed on telemetry monitoring. Due to complaints of chest pain and known history of CAD with prior stenting he had nuclear stress testing done which was negative for any significant ischemia. He also had an echo done with ejection fraction of 55 to 60%. He has been chest pain-free during his hospital stay. He was noted to be hypertensive in part due to need to hold his oral antihypertensive medication secondary to noted acute kidney impairment. Renal function improved with gentle hydration and antihypertensive therapy was resumed. Blood pressure has improved as a result. Patient will be discharged back to assisted living facility with appropriate primary care provider follow-up arranged. He is advised to seek medical attention immediately should he have additional chest pain. Physical Exam Const: COMMON NORMALS: no acute distress, patient oriented x3 and alert GENERAL APPEARANCE: cooperative and comfortable ORIENTATION/CONSCIOUSNESS: Yes awake OTHER: -very pleasant, looks appropriate for age, sitting up in bed HENMT: COMMON NORMALS: normocephalic, atraumatic and moist oral mucous membranes HEAD & SCALP: normocephalic and atraumatic GENERAL EAR: hearing grossly impaired Eye: COMMON NORMALS: Equal, round and reactive pupils present, EOMs intact bilaterally and conjunctivae normal CONJUNCTIVA: Yes conjunctivae normal PUPIL: Yes Equal, round and reactive pupils present Neck/C-Spine: COMMON NORMALS: full ROM GENERAL: Yes normal visual inspection and Yes trachea midline Chest: COMMONS NORMALS: normal inspection of the chest and normal palpation of entire chest wall OTHER: -tenderness to palpation of anterior chest Resp: COMMON NORMALS: normal respiratory effort, No retractions, No use of accessory muscles and clear to auscultation bilaterally EFFORT & INSPECTION: Yes able to speak in complete sentences, Yes symmetric chest movement and No tachypneic AUSCULTATION: clear to auscultation bilaterally OTHER: -on RA Cardio: COMMON NORMALS: regular rate, regular rhythm, S1 normal heart sound present, S2 normal heart sound present and No murmurs present (Cardio) RATE: regular rate RHYTHM: regular rhythm HEART SOUNDS: S1 normal heart sound present and S2 normal heart sound present GI: COMMON NORMALS: Normal to inspection, nondistended, normoactive bowel sounds present, Soft to palpation and non-tender PALPATION: Yes Soft to palpation Extremity: COMMON NORMALS: normal to inspection, full ROM, no clubbing, cyanosis or edema and no pedal edema NARRATIVE EXTREMITY EXAM: -compression stockings on bilateral LEs Neuro: COMMON NORMALS: patient oriented x3, moves all extremities, no focal motor deficits and no sensory deficits noted SENSORIUM/ORIENTATION: Yes alert Psych: COMMON NORMALS: mental status grossly normal, Normal thought process present, cooperative, normal affect and speech normal SPEECH: Yes normal speech THOUGHT PROCESS: Normal thought process present Skin: COMMON NORMALS: no rashes or lesions noted, no jaundice, no petechiae and no mottling GENERAL SKIN EXAM: no rashes or lesions noted Discharge Data Data Completed and Pending: Completed Studies During Hospitalization Category Date Time Status Sestamibi Stress Test Request Routi ne Exams 08/27/20 06:00 Draft XR chest 1V birdie ble [id number] Stat Exams 08/26/20 15:18 Completed NM vania perf SPECT r/s* [id number] Routin e Nuc Med 08/27/20 20:37 Completed CV echo complete* [id number] Routine Ultrasound 08/27/20 07:00 Completed Pending at discharge Category Date Time Status Sestamibi Stress Test Request Routi ne Exams 08/26/20 20:37 Stop Req Labs from last 24 hours 08/28/20 05:02 Sodium 134 L Potassium 3.7 Chloride 100 Carbon Dioxide 25 Anion Gap 12.7 BUN 15 Creatinine 1.2 GFR Calculation Not Reportable Glucose 98 Calculated Osmolal ity 279 L Calcium 9.2 Vitals: Last Vital Signs Temp 97.6 F 08/28/20 08:57 Pulse 75 08/28/20 08:57 Resp 17 08/28/20 08:57 BP 126/75 08/28/20 08:57 Pulse Ox 97 08/28/20 08:57 Discharge Plan Discharge Patient Disposition: Home Condition: Stable Prescriptions: Continued cetirizine 10 mg tablet 10 mg PO DAILY@0800 RF: 0 donepezil 10 mg tablet 10 mg PO BEDTIME@20 RF: 0 lisinopril 20 mg tablet 20 mg PO BID@ RF: 0 prochlorperazine maleate 10 mg tablet 10 mg PO Q8H PRN (Reason: Nausea) RF: 0 omeprazole 40 mg capsule,delayed release(DR/EC) 40 mg PO DAILY RF: 0 acetaminophen 500 mg Tablet 1,000 mg PO Q6H PRN (Reason: Pain) RF: 0 meclizine 25 mg tablet 25 mg PO TID PRN (Reason: Dizziness) RF: 0 ferrous sulfate 325 mg (65 mg iron) Tablet 325 mg PO DAILY@08 RF: 0 nitroglycerin 0.4 mg tablet, sublingual 0.4 mg sublingual PRN RF: 0 gabapentin 300 mg capsule 300 mg PO TID RF: 0 azelastine 137 mcg (0.1 %) aerosol,spray 2 spray intranasal BID RF: 0 albuterol sulfate [Ventolin HFA] 90 mcg/actuation HFA aerosol inhaler 2 puff inhalation Q4H PRN (Reason: Shortness Of Breath) RF: 0 diphenhydramine-acetaminophen [Acetaminophen PM] 25-500 mg Tablet 1 tab PO BEDTIME RF: 0 fluticasone propionate 50 mcg/actuation spray,suspension 2 spray intranasal DAILY RF: 0 Ex-Lax Maximum Strength 25 mg Tablet 25 mg PO DAILY@1999 RF: 0 dicyclomine 10 mg Capsule 10 mg PO TID PRN (Reason: Pain) RF: 0 cholecalciferol (vitamin D3) 1,250 mcg (50,000 unit) Capsule 1,250 mcg PO Q7D RF: 0 Triple Antibiotic 3.5mg-400 unit- 5,000 unit/gram Ointment See Rx Instructions .ROUTE .COMPLEX RF: 0 furosemide 20 mg Tablet 20 mg PO DAILY@08 RF: 0 hydrochlorothiazide 25 mg Tablet 25 mg PO DAILY@08 RF: 0 Discharge Orders: Discharge Order (Routine); Ordered 08/28/20 Ordered By: Junie Taylor Referrals: Siva Montoya [Referring] - 4-7 days Discharge Diet: Cardiac Discharge Activity: Increase activity as tolerated Discharge Attestations Time Spent in Discharge Care*: greater than 30 min Specific Discharge Activities: educating patient, discussing with case management manager/social workers/dc planners, documenting/other paperwork and evaluating patient/reviewing data Status at Discharge: Cognitive status at discharge: cognitively intact , Beh avioral status at discharge: cooperative , Functional status at discharge: uses cane/walker Overall status at discharge: patient is progressing back to baseline Quality Metrics Clinical Quality Measures During this hospital stay, did patient experience: None Coding Level of Care Code Acute Cigar Roller for [facility] Fwd Exam Comprehensive Diagnoses Chest pain R07.9 Chest pain type: unspecified SAVANNAH (acute kidney injury) N17.9 Benign essential HTN I10 COPD (chronic obstructive pulmonary disease) J44.9 COPD type: unspecified COPD Coronary artery disease I25.10 Associated angina: angina presence unspecified Coronary Disease-Associated Artery/Lesion type: [place] artery [place] vs. transplanted heart: [place] heart
[2020-08-28] MEDS: fluticasone nasal spray 16gm Btl 2 SPRAY INTRANASAL (11:39)
[2020-08-28] MEDS: hydroCHLOROthiazide 25 mg Tablet PO (13:25)
== END 2020-08-28 18:48 | disposition home or self-care (01) | DRG 313 ==
LOC: ER 16:32 → MEDSURG 18:20
PROVIDERS: Admitting Provider Family Medicine; Emergency Provider Family Medicine; Visit Provider Family Medicine
DX: R07.9 Chest pain, unspecified (principal); I13.0 Hypertensive heart and chronic kidney disease with heart failure and stage 1 through stage 4 chronic kidney disease, or unspecified chronic kidney disease; I50.32 Chronic diastolic (congestive) heart failure; N17.9 Acute kidney failure, unspecified; I25.10 Atherosclerotic heart disease of native coronary artery without angina pectoris; Z95.5 Presence of coronary angioplasty implant and graft; N18.31 Chronic kidney disease, stage 3a; J44.9 Chronic obstructive pulmonary disease, unspecified; Z87.891 Personal history of nicotine dependence; I25.2 Old myocardial infarction; Z79.51 Long term (current) use of inhaled steroids
CPT/HCPCS: 12345; 36415; 71045; 78452; 80048; 80053; 80061; 84443; 84484; 85025; 93005; 93017; 93306; 96372; 99283; A9500; J1644; J1650; J2270; J2785; J7030

== ENCOUNTER 2020-09-06 14:25 | Emergency (ER) | payer MEDICARE, MEDICAID, SELFPAY ==
[2020-09-06 14:30] VITALS: BP 151/90; PULSE 67; RESP 16; TEMP 36.7; O2SAT 97; BMI 27.8
--- NOTE | 2020-09-06 14:42 | CTR_ITS ---
PROCEDURE INFORMATION: Exam: CT Head Without Contrast Exam date and time: 09/06/2020 3:05 PM Age: 80 years old Clinical indication: Dizziness; Additional info: Post fall dizzieness TECHNIQUE: Imaging protocol: Computed tomography of the head without contrast. Radiation optimization: All CT scans at this facility use at least one of these dose optimization techniques: automated exposure control; mA and/or kV adjustment per patient size (includes targeted exams where dose is matched to clinical indication); or iterative reconstruction. COMPARISON: CT head wo con* [id number] 04/10/2020 9:39 AM RADIATION DOSE METRICS: Total DLP (mGy-cm): 899.28 FINDINGS: Brain: There is volume loss and periventricular low density compatible with chronic small vessel disease changes. There is no acute hemorrhage, edema or mass effect. Cerebral ventricles: No ventriculomegaly. Bones/joints: Old nasal bone fracture deformity is noted. No acute fracture. Paranasal sinuses: There is trace mucosal thickening in the sinuses. Mastoid air cells: There is sclerosis and patchy opacification of the mastoid air cells compatible with chronic mastoiditis unchanged since the prior exam. Soft tissues: Unremarkable. CT/CT head wo con* [id number] IMPRESSION: 1. No acute intracranial abnormality. 2. There is sclerosis and patchy opacification of the mastoid air cells compatible with chronic mastoiditis unchanged since the prior exam. Radiation Dose CTDIVOL = (mGy): DLP = 899.28 (mGy-cm)
--- NOTE | 2020-09-06 14:43 | ECG_ITS ---
[facility] Test Date: 2020-09-06 Pat Name: Jareth Mcqueen Department: Room: Gender: Male Specialty Department Supervisor: : 1940 Requested By: Edis Tamayo Order Number: [id number] Marti MD: Joshua Patel M.D. Measurements Intervals [place] Rate: 64 P: 43 LA: 192 QRS: 30 QRSD: 88 T: 46 QT: 381 QTc: 394 Interpretive Statements SINUS RHYTHM Compared to ECG 08/26/2020 18:13:12 No significant changes Electronically Signed On 09-07-2020 9:18:06 BLOW PIT OPERATOR by Joshua Patel M.D. [email or web address]
--- NOTE | 2020-09-06 14:46 | ED_ITS ---
HPI - Dizziness General: Chief Complaint: Dizziness Stated Complaint: DIZZINESS/ HEADACHE Time Seen by Provider: 09/06/20 14:42 History of Present Illness: HPI Narrative: Patient arrived by ambulance with complaint of headache last 3 to 4 days. Also had a fall 4 days ago hit his head he says. Said he was dizzy he seemed more dizzy now he complains. Patient also states that he has been placed on new medication by his primary care provider over the last week and it seems to be when the dizziness started. Does complain about some blurred vision denies any nausea or vomiting denies any balance problem MD elicited complaint: dizziness Pertinent past history: recent head injury Onset (ago): day(s) (For) Timing: gradual onset Severity: mild Description: room spinning Exacerbating factors: movement/ambulation Relieving factors: remaining still Associated symptoms: Reports no associated symptoms and headache(s); Denies chest pain, chills, nausea, nasal congestion or vomiting Associated neuro symptoms: Reports no associated symptoms Review of Systems 2 Const: Denies: fever(s), chills or body aches Eyes: Denies: change in vision or blurry vision ENMT: Denies: throat pain or nasal congestion Card: Denies: chest pain or dyspnea on exertion Resp: Denies: dyspnea, productive cough or non-productive cough GI: Denies: abdominal pain, nausea or vomiting : Denies: difficulty urinating Musc: Denies: extremity pain Skin/Breast: Denies: rash Neuro: Reports: headache(s) and dizziness Psych: Denies: anxiety or depression Biju/Lymph: Denies: easy bruising PFS ED PFSH: Medical History (Updated 09/06/20 @ 16:17 by EZRA Ulloa) Benign essential HTN -continue oral antihypertensives Chronic diastolic CHF (congestive heart failure) COPD (chronic obstructive pulmonary disease) -not oxygen dependent at baseline Coronary artery disease -s/p stenting x 3 Stage 3a chronic kidney disease Surgical History (Updated 08/26/20 @ 18:11 by Junie Taylor MD) History of coronary artery stent placement -x 3 Family History (Updated 08/26/20 @ 18:11 by Junie Taylor MD) Father CAD (coronary artery disease) Mother CAD (coronary artery disease) Social History (Updated 08/26/20 @ 18:12 by Junie Taylor MD) Smoking and tobacco status: former smoker Quit status (tobacco): has quit using tobacco Year quit tobacco: 30 yrs ago Alcohol intake: never Housing: Assisted Living Facility Physical Exam Const: COMMON NORMALS: no acute distress, average body habitus and patient oriented x3 HENMT: COMMON NORMALS: normocephalic HEAD & SCALP: normal to inspection and normocephalic FACE & SINUS: normal facial exam Eye: COMMON NORMALS: conjunctivae normal GENERAL EYE: appearance normal, both eyes and all related structures CONJUNCTIVA: Yes conjunctivae normal Neck/C-Spine: COMMON NORMALS: no JVD Chest: COMMONS NORMALS: normal inspection of the chest Resp: COMMON NORMALS: normal respiratory effort and clear to auscultation bilaterally AUSCULTATION: clear to auscultation bilaterally Cardio: COMMON NORMALS: no JVD, regular rate and regular rhythm RATE: regular rate RHYTHM: regular rhythm GI: COMMON NORMALS: Normal to inspection, nondistended, normoactive bowel sounds present Extremity: COMMON NORMALS: normal to inspection and full ROM Neuro: COMMON NORMALS: patient oriented x3 and CN's II-XII intact bilaterally Course Vital Signs: Vital signs: Vital Signs Temperature 98.0 F 09/06/20 14:30 Pulse Rate 70 09/06/20 16:10 Respiratory Rate 14 09/06/20 16:10 Blood Pressure 160/90 09/06/20 16:10 Pulse Oximetry 98 09/06/20 16:10 MDM - Dizziness MDM Narrative: Medical decision making narrative: Patient main complaint is headache post fall. He is going get checked out make sure he did have a brain bleed. Did have some dizziness he said he has had a dizziness since placed on new medication by his primary care provider. Exams were negative EKG was fine sodium was low which she has a history of. Patient is going to follow-up with his primary care provider and discuss his medications. Lab Data: Labs: Lab Results 09/06/20 09/06/20 Range/Units 15:15 15:15 WBC 6.1 (4.0-10.0) 10^3/ uL RBC 3.89 L (4.1-5.3) 10^6/u L Hgb 11.7 (11.7-16.6) g/dL Hct 35.2 L (42.0-52.0) % MCV 90.5 (80-94) fL MCH 30.1 (28.0-34.0) pg MCHC 33.2 (30.0-36.0) g/dL RDW 12.5 (12.1-15.1) % Plt Count 245 (130-400) 10^3/c mm MPV 9.0 (7.4-10.4) fL Neut % (Auto) 71.9 % Lymph % (Auto) 11.2 % [place] % (Auto) 14.6 % Eos % (Auto) 1.3 % Baso % (Auto) 0.5 % Neut # (Auto) 4.38 (1.8-7.7) 10^3/u L Lymph # (Auto) 0.7 L (0.8-4.8) 10^3/u L [place] # (Auto) 0.9 (0.2-0.9) 10^3/u L Eos # (Auto) 0.1 (0.0-0.8) 10^3/u L Baso # (Auto) 0.0 (0.0-0.1) 10^3/u L Nucleated RBC % (a uto) 0 % Nucleated RBCs # 0.0 /100WBC Sodium 128 L (136-145) mmol/L Potassium 4.4 (3.5-5.1) mmol/L Chloride 92 L (98-107) mmol/L Carbon Dioxide 29 (22-29) mmol/L Anion Gap 11.4 (5-19) BUN 15 (8-23) mg/dL Creatinine 1.5 H (0.7-1.2) mg/dL GFR Calculation Not Reportable Glucose 110 (65-115) mg/dL Calculated Osmolal ity 267 L (285-295) mOsm/k g Calcium 8.9 (8.5-10.5) mg/dL Total Bilirubin 0.3 (0.15-1.2) mg/dL AST 16 (0-40) U/L ALT 16 (0-41) U/L Alkaline Phosphata se 84 (40-130) IU/L Total Protein 6.7 (6.6-8.7) g/dL Albumin 3.9 (3.5-5.2) g/dL Globulin 2.8 (1.3-4.6) g/dL EKG Data^: EKG 1: EKG interpretation date: 09/06/20 EKG interpretation time: 15:10 Computer generated interpretation: Normal sinus rhythm ventricular rate 64 bpm NE interval 192 ms QRS duration 88 ms Discharge Plan Discharge Patient Disposition: Home Clinical Impression: Hypokalemia Contusion of head Qualifiers: Encounter type: initial encounter Contusion of head detail: scalp Qualified Code(s): S00.03XA - Contusion of scalp, initial encounter Condition: Stable Prescriptions: No Action cetirizine 10 mg tablet 10 mg PO DAILY@0800 RF: 0 donepezil 10 mg tablet 10 mg PO BEDTIME@20 RF: 0 lisinopril 20 mg tablet 20 mg PO BID@ RF: 0 prochlorperazine maleate 10 mg tablet 10 mg PO Q8H PRN (Reason: Nausea) RF: 0 omeprazole 40 mg capsule,delayed release(DR/EC) 40 mg PO DAILY@629 RF: 0 acetaminophen 500 mg Tablet 1,000 mg PO Q6H PRN (Reason: Pain) RF: 0 meclizine 25 mg tablet 25 mg PO TID PRN (Reason: Dizziness) RF: 0 ferrous sulfate 325 mg (65 mg iron) Tablet 325 mg PO DAILY@08 RF: 0 nitroglycerin 0.4 mg tablet, sublingual 0.4 mg sublingual PRN RF: 0 gabapentin 300 mg capsule 300 mg PO TID RF: 0 azelastine 137 mcg (0.1 %) aerosol,spray 2 spray intranasal BID@ RF: 0 albuterol sulfate [Ventolin HFA] 90 mcg/actuation HFA aerosol inhaler 2 puff inhalation Q4H PRN (Reason: Shortness Of Breath) RF: 0 fluticasone propionate 50 mcg/actuation spray,suspension 2 spray intranasal DAILY@629 RF: 0 Ex-Lax Maximum Strength 25 mg Tablet 25 mg PO DAILY@1999 RF: 0 dicyclomine 10 mg Capsule 10 mg PO TID PRN (Reason: Pain) RF: 0 cholecalciferol (vitamin D3) 1,250 mcg (50,000 unit) Capsule 1,250 mcg PO Q7D RF: 0 atorvastatin 10 mg Tablet 10 mg PO DAILY@1999 RF: 0 clopidogrel 75 mg Tablet 75 mg PO DAILY@30 RF: 0 Aspir-81 81 mg Tablet,Delayed Release (Dr/Ec) 81 mg PO DAILY@06 RF: 0 tramadol 50 mg Tablet 100 mg PO DAILY@629 RF: 0 tamsulosin 0.4 mg Capsule 0.4 mg PO DAILY@1999 RF: 0 Acetaminophen PM 25-500 mg Tablet 1 tab PO BEDTIME@1999 RF: 0 dicyclomine 10 mg Capsule 10 mg PO TID PRN (Reason: Pain) RF: 0 Triple Antibiotic 3.5mg-400 unit- 5,000 unit/gram Ointment See Rx Instructions .ROUTE .COMPLEX RF: 0 furosemide 20 mg Tablet 20 mg PO DAILY@08 RF: 0 hydrochlorothiazide 25 mg Tablet 25 mg PO DAILY@08 RF: 0 Discharge Orders: Discharge ED (Routine); Ordered 09/06/20 Ordered By: Edis Tamayo Discharge Diet: Usual diet Discharge Activity: Increase activity as tolerated Patient Instructions: Headache, Hypokalemia (ED) Activity Restrictions/Additional Instructions: Follow-up your family doctor this coming week recheck labs. If headache persist follow-up your family doctor. Can take Tylenol and/or ibuprofen for discomfort. Coding Level of Care Code ED Instructor Substitute [employer] for [employer] Fwd Exam Comprehensive
[2020-09-06 15:17] VITALS: BP 147/91; PULSE 65; RESP 14; O2SAT 97
[2020-09-06 15:29] LABS: Basophils % 0.5 %; Eosinophils # 0.1 10^3/uL (0.0-0.8); Eosinophils % 1.3 %; Hematocrit 35.2 % (42.0-52.0); Hemoglobin 11.7 g/dL (11.7-16.6); Lymphocytes # 0.7 10^3/uL (0.8-4.8); Lymphocytes % 11.2 %; Mean Corpuscular HGB Conc 33.2 g/dL (30.0-36.0); Mean Corpuscular Hemoglobin 30.1 pg (28.0-34.0); Mean Corpuscular Volume 90.5 fL (80-94); Monocytes # 0.9 10^3/uL (0.2-0.9); Monocytes % 14.6 %; Neutrophils # 4.38 10^3/uL (1.8-7.7); Neutrophils % 71.9 %; Nucleated Red Blood Cells % 0 %; Platelet Count 245 10^3/cmm (130-400); Red Blood Count 3.89 10^6/uL (4.1-5.3); Red Cell Distribution Width 12.5 % (12.1-15.1); White Blood Count 6.1 10^3/uL (4.0-10.0)
[2020-09-06 15:52] LABS: Alanine Aminotransferase 16 U/L (0-41); Albumin Level 3.9 g/dL (3.5-5.2); Alkaline Phosphatase 84 IU/L (40-130); Anion Gap 11.4 (5-19); Aspartate Amino Transferase 16 U/L (0-40); Blood Urea Nitrogen 15 mg/dL (8-23); Calcium 8.9 mg/dL (8.5-10.5); Carbon Dioxide 29 mmol/L (22-29); Chloride 92 mmol/L (98-107); Globulin 2.8 g/dL (1.3-4.6); Glucose 110 mg/dL (65-115); Osmolality Calculated 267 mOsm/kg (285-295); Potassium 4.4 mmol/L (3.5-5.1); Sodium 128 mmol/L (136-145); Total Bilirubin 0.3 mg/dL (0.15-1.2); Total Protein 6.7 g/dL (6.6-8.7)
[2020-09-06] MEDS: acetaminophen 500 mg Tablet 1000 MG PO (16:05)
[2020-09-06 16:10] VITALS: BP 160/90; PULSE 70; RESP 14; O2SAT 98
[2020-09-06 17:10] VITALS: BP 138/84; PULSE 68; RESP 14; O2SAT 98
[2020-09-06 19:15] VITALS: BP 138/97; PULSE 67; RESP 14; O2SAT 97
== END 2020-09-06 20:13 | disposition home or self-care (01) ==
PROVIDERS: Emergency Provider Nurse Practitioner Family
DX: S00.03XA Contusion of scalp, initial encounter (principal); E87.6 Hypokalemia; Z79.02 Long term (current) use of antithrombotics/antiplatelets; Z79.82 Long term (current) use of aspirin; J44.9 Chronic obstructive pulmonary disease, unspecified; I25.10 Atherosclerotic heart disease of native coronary artery without angina pectoris; I13.0 Hypertensive heart and chronic kidney disease with heart failure and stage 1 through stage 4 chronic kidney disease, or unspecified chronic kidney disease; N18.31 Chronic kidney disease, stage 3a; I50.32 Chronic diastolic (congestive) heart failure; Z87.891 Personal history of nicotine dependence; X58.XXXA Exposure to other specified factors, initial encounter
CPT/HCPCS: 12345; 70450; 80053; 85025; 93005; 99281; 99283

== ENCOUNTER 2020-09-16 17:36 | Inpatient (IN) | payer MEDICARE, MEDICAID, SELFPAY ==
[2020-09-16] VITALS (15 sets, daily range): BP systolic 121–157; BP diastolic 81–101; PULSE 84–114; RESP 13–22; TEMP 36.7; O2SAT 95–98; BMI 24.3
--- NOTE | 2020-09-16 17:51 | W.ED.ABDPA2 ---
Documented by User: Drew David DO 09/17/20 10:39 HPI - Abdominal Pain General: Chief Complaint: Abdominal Pain Stated Complaint: NAUSEA Time Seen by Provider: 09/16/20 17:38 History of Present Illness: HPI narrative: 80-year-old male lives in a local residential home. He was brought in via ambulance from [facility]. He is complaining of abdominal pain and nausea. He been seen here several other times recently. Nursing staff says he frequently is calling EMS to be evaluated was admitted for an acute kidney injury earlier this month. He returned again on the with a contusion in his head. Today's complaining of epigastric and left upper quadrant pain at times radiates up into his chest. He does have a bit of a learning disability so it is difficult to get a full and accurate historical assessment on him. He is having some chest discomfort and shortness of breath at times as well.. MD elicited complaint: abdominal pain Pertinent past history: none Onset (ago): hour(s) Pain Consistency: intermittent Location: Epigastric and LUQ Severity: moderate Quality: cramping Migration to: no migration and LUQ Associated Symptoms: Reports belching; Denies anorexia, bloating, change in bowel habits, change in stool character, chills, coffee ground emesis, constipation, GI cramping, diarrhea, dyspepsia, dysuria, excessive flatus, fever(s), heartburn, hematochezia, hematuria, hematemesis, fecal incontinence, loose stools, melena, nausea, poor appetite, syncope and vomiting Review of Systems Const: Denies: fever(s) or chills ENMT: Denies: throat pain, ear or mastoid pain, nasal discharge or nasal congestion Card: Denies: syncope Resp: Denies: dyspnea, productive cough or non-productive cough GI: Reports: belching; Denies: nausea, vomiting, hematemesis, coffee ground emesis, heartburn, diarrhea, constipation, bloating, GI cramping, excessive flatus, fecal incontinence, change in bowel habits, change in stool character, hematochezia or melena : Denies: dysuria or hematuria Skin/Breast: Denies: rash or pruritus PFS ED PFSH: Medical History Benign essential HTN -continue oral antihypertensives Chronic diastolic CHF (congestive heart failure) COPD (chronic obstructive pulmonary disease) -not oxygen dependent at baseline Coronary artery disease -s/p stenting x 3 Stage 3a chronic kidney disease Surgical History History of coronary artery stent placement -x 3 Family History Father CAD (coronary artery disease) Mother CAD (coronary artery disease) Social History Smoking and tobacco status: former smoker Quit status (tobacco): has quit using tobacco Year quit tobacco: 30 yrs ago Alcohol intake: never Housing: Assisted Living Facility Physical Exam Const: COMMON NORMALS: no acute distress GENERAL APPEARANCE: cooperative and comfortable ORIENTATION/CONSCIOUSNESS: Yes awake, Yes oriented to person, Yes oriented to place and Yes oriented to time HENMT: COMMON NORMALS: normocephalic, atraumatic and hearing grossly normal bilaterally HEAD & SCALP: normocephalic and atraumatic Neck/C-Spine: COMMON NORMALS: no JVD Resp: COMMON NORMALS: normal respiratory effort, No retractions, No use of accessory muscles and clear to auscultation bilaterally AUSCULTATION: clear to auscultation bilaterally Cardio: COMMON NORMALS: no JVD, regular rate, regular rhythm and No murmurs present (Cardio) RATE: regular rate RHYTHM: regular rhythm GI: COMMON NORMALS: No hepatosplenomegaly present AUSCULTATION: Yes normoactive bowel sounds PALPATION: Yes Tenderness to palpation present (GI), No Guarding due to palpation present (GI) and Yes No hepatosplenomegaly present Extremity: COMMON NORMALS: normal to inspection, capillary refill normal, no clubbing, cyanosis or edema, no calf tenderness and no pedal edema Neuro: SENSORIUM/ORIENTATION: Yes oriented to person, Yes oriented to place and Yes oriented to time Skin: COMMON NORMALS: no rashes or lesions noted GENERAL SKIN EXAM: no rashes or lesions noted Course Vital Signs: Vital signs: Vital Signs Temperature 98.2 F 09/17/20 04:00 Pulse Rate 68 09/17/20 06:06 Respiratory Rate 10 L 09/17/20 06:05 Blood Pressure 121/66 09/17/20 06:05 Pulse Oximetry 92 09/17/20 06:05 MDM - Abdominal Pain MDM Narrative: Medical decision making narrative: Turned over to Dr. Murguia at change of shift see his notes for final diagnosis and disposition Lab Data: Labs: Lab Results 09/16/20 09/16/20 09/16/20 Range/Units 18:00 18:00 18:00 WBC 9.0 (4.0-10.0) 10^3/ uL RBC 4.33 (4.1-5.3) 10^6/u L Hgb 13.1 (11.7-16.6) g/dL Hct 39.8 L (42.0-52.0) % MCV 91.9 (80-94) fL MCH 30.3 (28.0-34.0) pg MCHC 32.9 (30.0-36.0) g/dL RDW 12.8 (12.1-15.1) % Plt Count 204 (130-400) 10^3/c mm MPV 8.8 (7.4-10.4) fL Neut % (Auto) 83.7 % Lymph % (Auto) 3.9 % Hutchinson % (Auto) 10.9 % Eos % (Auto) 0.8 % Baso % (Auto) 0.4 % Neut # (Auto) 7.52 (1.8-7.7) 10^3/u L Lymph # (Auto) 0.4 L (0.8-4.8) 10^3/u L Hutchinson # (Auto) 1.0 H (0.2-0.9) 10^3/u L Eos # (Auto) 0.1 (0.0-0.8) 10^3/u L Baso # (Auto) 0.0 (0.0-0.1) 10^3/u L Nucleated RBC % (a uto) 0 % Nucleated RBCs # 0.0 /100WBC D-Dimer (0-0.59) ug/mIFE U Sodium 133 L (136-145) mmol/L Potassium 4.2 (3.5-5.1) mmol/L Chloride 94 L (98-107) mmol/L Carbon Dioxide 27 (22-29) mmol/L Anion Gap 16.2 (5-19) BUN 25 H (8-23) mg/dL Creatinine 1.9 H (0.7-1.2) mg/dL GFR Calculation Not Reportable Glucose 120 H (65-115) mg/dL Calculated Osmolal ity 282 L (285-295) mOsm/k g Calcium 9.3 (8.5-10.5) mg/dL Magnesium (1.7-2.3) mg/dL Total Bilirubin 0.4 (0.15-1.2) mg/dL AST 19 (0-40) U/L ALT 15 (0-41) U/L Alkaline Phosphata se 84 (40-130) IU/L Creatine Kinase 262 (39-308) U/L Troponin T Baselin e 27 H (0-15) ng/L Troponin T 120 Min [place] (0-15) ng/L Delta Troponin T (0-10) ABS# Total Protein 6.8 (6.6-8.7) g/dL Albumin 4.1 (3.5-5.2) g/dL Globulin 2.7 (1.3-4.6) g/dL Lipase 19 (13-60) U/L TSH (0.27-4.20) uIU/ mL Urine Color (Yellow) Urine Appearance (CLEAR) Urine pH (5-7) Ur Specific Gravit y (1.005-1.030) Urine Protein (Negative) Urine Glucose (UA) (Normal) Urine Ketones (Negative) Urine Blood (Negative) Urine Nitrate (Negative) Urine Bilirubin (Negative) Urine Urobilinogen (Negative) mg/dL Ur Leukocyte Anali ase (Negative) Urine RBC (0-2) /hpf Urine WBC (0-5) /hpf Ur Squamous Epith Cells (0-5) /hpf Amorphous Sediment Urine Bacteria (NONE) /hpf 09/16/20 09/16/20 09/16/20 Range/Units 18:00 20:00 20:00 WBC (4.0-10.0) 10^3/ uL RBC (4.1-5.3) 10^6/u L Hgb (11.7-16.6) g/dL Hct (42.0-52.0) % MCV (80-94) fL MCH (28.0-34.0) pg MCHC (30.0-36.0) g/dL RDW (12.1-15.1) % Plt Count (130-400) 10^3/c mm MPV (7.4-10.4) fL Neut % (Auto) % Lymph % (Auto) % Hutchinson % (Auto) % Eos % (Auto) % Baso % (Auto) % Neut # (Auto) (1.8-7.7) 10^3/u L Lymph # (Auto) (0.8-4.8) 10^3/u L Hutchinson # (Auto) (0.2-0.9) 10^3/u L Eos # (Auto) (0.0-0.8) 10^3/u L Baso # (Auto) (0.0-0.1) 10^3/u L Nucleated RBC % (a uto) % Nucleated RBCs # /100WBC D-Dimer <= 0.27 (0-0.59) ug/mIFE U Sodium (136-145) mmol/L Potassium (3.5-5.1) mmol/L Chloride (98-107) mmol/L Carbon Dioxide (22-29) mmol/L Anion Gap (5-19) BUN (8-23) mg/dL Creatinine (0.7-1.2) mg/dL GFR Calculation Glucose (65-115) mg/dL Calculated Osmolal ity (285-295) mOsm/k g Calcium (8.5-10.5) mg/dL Magnesium 1.8 (1.7-2.3) mg/dL Total Bilirubin (0.15-1.2) mg/dL AST (0-40) U/L ALT (0-41) U/L Alkaline Phosphata se (40-130) IU/L Creatine Kinase (39-308) U/L Troponin T Baselin e (0-15) ng/L Troponin T 120 Min [place] 23.80 H (0-15) ng/L Delta Troponin T -3.20 L (0-10) ABS# Total Protein (6.6-8.7) g/dL Albumin (3.5-5.2) g/dL Globulin (1.3-4.6) g/dL Lipase (13-60) U/L TSH 1.48 (0.27-4.20) uIU/ mL Urine Color (Yellow) Urine Appearance (CLEAR) Urine pH (5-7) Ur Specific Gravit y (1.005-1.030) Urine Protein (Negative) Urine Glucose (UA) (Normal) Urine Ketones (Negative) Urine Blood (Negative) Urine Nitrate (Negative) Urine Bilirubin (Negative) Urine Urobilinogen (Negative) mg/dL Ur Leukocyte Anali ase (Negative) Urine RBC (0-2) /hpf Urine WBC (0-5) /hpf Ur Squamous Epith Cells (0-5) /hpf Amorphous Sediment Urine Bacteria (NONE) /hpf 09/16/20 Range/Units 20:09 WBC (4.0-10.0) 10^3/ uL RBC (4.1-5.3) 10^6/u L Hgb (11.7-16.6) g/dL Hct (42.0-52.0) % MCV (80-94) fL MCH (28.0-34.0) pg MCHC (30.0-36.0) g/dL RDW (12.1-15.1) % Plt Count (130-400) 10^3/c mm MPV (7.4-10.4) fL Neut % (Auto) % Lymph % (Auto) % Hutchinson % (Auto) % Eos % (Auto) % Baso % (Auto) % Neut # (Auto) (1.8-7.7) 10^3/u L Lymph # (Auto) (0.8-4.8) 10^3/u L Hutchinson # (Auto) (0.2-0.9) 10^3/u L Eos # (Auto) (0.0-0.8) 10^3/u L Baso # (Auto) (0.0-0.1) 10^3/u L Nucleated RBC % (a uto) % Nucleated RBCs # /100WBC D-Dimer (0-0.59) ug/mIFE U Sodium (136-145) mmol/L Potassium (3.5-5.1) mmol/L Chloride (98-107) mmol/L Carbon Dioxide (22-29) mmol/L Anion Gap (5-19) BUN (8-23) mg/dL Creatinine (0.7-1.2) mg/dL GFR Calculation Glucose (65-115) mg/dL Calculated Osmolal ity (285-295) mOsm/k g Calcium (8.5-10.5) mg/dL Magnesium (1.7-2.3) mg/dL Total Bilirubin (0.15-1.2) mg/dL AST (0-40) U/L ALT (0-41) U/L Alkaline Phosphata se (40-130) IU/L Creatine Kinase (39-308) U/L Troponin T Baselin e (0-15) ng/L Troponin T 120 Min [place] (0-15) ng/L Delta Troponin T (0-10) ABS# Total Protein (6.6-8.7) g/dL Albumin (3.5-5.2) g/dL Globulin (1.3-4.6) g/dL Lipase (13-60) U/L TSH (0.27-4.20) uIU/ mL Urine Color Yellow (Yellow) Urine Appearance Clear (CLEAR) Urine pH 5.0 (5-7) Ur Specific Gravit y 1.010 (1.005-1.030) Urine Protein Neg (Negative) Urine Glucose (UA) Norm (Normal) Urine Ketones 1+ H (Negative) Urine Blood 2+ H (Negative) Urine Nitrate Negative (Negative) Urine Bilirubin Neg (Negative) Urine Urobilinogen Norm (Negative) mg/dL Ur Leukocyte Anlai ase Negative (Negative) Urine RBC 0-4 H (0-2) /hpf Urine WBC None (0-5) /hpf Ur Squamous Epith Cells None (0-5) /hpf Amorphous Sediment Not Reportable Urine Bacteria Trace (NONE) /hpf Discharge Plan Discharge Patient Disposition: Admitted As Inpatient Admit Provider: Hernan Michelle Clinical Impression: Atrial fibrillation with RVR Abdominal pain Qualifiers: Abdominal location: generalized Qualified Code(s): R10.84 - Generalized abdominal pain Condition: Stable Discharge Diet: Advance as tolerated Discharge Activity: Resume usual activity Coding Level of Care Code ED Rescue Instructor for Chg Fwd Exam Comprehensive Documented by User: Silvina Murguia MD 09/16/20 22:08 HPI - Abdominal Pain General: Chief Complaint: Abdominal Pain Stated Complaint: NAUSEA Time Seen by Provider: 09/16/20 17:38 [facility] PFSH: Medical History Benign essential HTN -continue oral antihypertensives Chronic diastolic CHF (congestive heart failure) COPD (chronic obstructive pulmonary disease) -not oxygen dependent at baseline Coronary artery disease -s/p stenting x 3 Stage 3a chronic kidney disease Surgical History History of coronary artery stent placement -x 3 Family History Father CAD (coronary artery disease) Mother CAD (coronary artery disease) Social History Smoking and tobacco status: former smoker Quit status (tobacco): has quit using tobacco Year quit tobacco: 30 yrs ago Alcohol intake: never Housing: Assisted Living Facility Course Vital Signs: Vital signs: Vital Signs Temperature 98.2 F 09/17/20 04:00 Pulse Rate 68 09/17/20 06:06 Respiratory Rate 10 L 09/17/20 06:05 Blood Pressure 121/66 09/17/20 06:05 Pulse Oximetry 92 09/17/20 06:05 MDM - Abdominal Pain MDM Narrative: Medical decision making narrative: Patient presents for abdominal pain along with A. fib with RVR. Patient's heart rate is improved after Cardizem. This is new onset A. fib. I spoke to hospitalist and will admit. Lab Data: Labs: Lab Results 09/16/20 09/16/20 09/16/20 Range/Units 18:00 18:00 18:00 WBC 9.0 (4.0-10.0) 10^3/ uL RBC 4.33 (4.1-5.3) 10^6/u L Hgb 13.1 (11.7-16.6) g/dL Hct 39.8 L (42.0-52.0) % MCV 91.9 (80-94) fL MCH 30.3 (28.0-34.0) pg MCHC 32.9 (30.0-36.0) g/dL RDW 12.8 (12.1-15.1) % Plt Count 204 (130-400) 10^3/c mm MPV 8.8 (7.4-10.4) fL Neut % (Auto) 83.7 % Lymph % (Auto) 3.9 % Hutchinson % (Auto) 10.9 % Eos % (Auto) 0.8 % Baso % (Auto) 0.4 % Neut # (Auto) 7.52 (1.8-7.7) 10^3/u L Lymph # (Auto) 0.4 L (0.8-4.8) 10^3/u L Hutchinson # (Auto) 1.0 H (0.2-0.9) 10^3/u L Eos # (Auto) 0.1 (0.0-0.8) 10^3/u L Baso # (Auto) 0.0 (0.0-0.1) 10^3/u L Nucleated RBC % (a uto) 0 % Nucleated RBCs # 0.0 /100WBC D-Dimer (0-0.59) ug/mIFE U Sodium 133 L (136-145) mmol/L Potassium 4.2 (3.5-5.1) mmol/L Chloride 94 L (98-107) mmol/L Carbon Dioxide 27 (22-29) mmol/L Anion Gap 16.2 (5-19) BUN 25 H (8-23) mg/dL Creatinine 1.9 H (0.7-1.2) mg/dL GFR Calculation Not Reportable Glucose 120 H (65-115) mg/dL Calculated Osmolal ity 282 L (285-295) mOsm/k g Calcium 9.3 (8.5-10.5) mg/dL Magnesium (1.7-2.3) mg/dL Total Bilirubin 0.4 (0.15-1.2) mg/dL AST 19 (0-40) U/L ALT 15 (0-41) U/L Alkaline Phosphata se 84 (40-130) IU/L Creatine Kinase 262 (39-308) U/L Troponin T Baselin e 27 H (0-15) ng/L Troponin T 120 Min [place] (0-15) ng/L Delta Troponin T (0-10) ABS# Total Protein 6.8 (6.6-8.7) g/dL Albumin 4.1 (3.5-5.2) g/dL Globulin 2.7 (1.3-4.6) g/dL Lipase 19 (13-60) U/L TSH (0.27-4.20) uIU/ mL Urine Color (Yellow) Urine Appearance (CLEAR) Urine pH (5-7) Ur Specific Gravit y (1.005-1.030) Urine Protein (Negative) Urine Glucose (UA) (Normal) Urine Ketones (Negative) Urine Blood (Negative) Urine Nitrate (Negative) Urine Bilirubin (Negative) Urine Urobilinogen (Negative) mg/dL Ur Leukocyte Anali ase (Negative) Urine RBC (0-2) /hpf Urine WBC (0-5) /hpf Ur Squamous Epith Cells (0-5) /hpf Amorphous Sediment Urine Bacteria (NONE) /hpf 09/16/20 09/16/20 09/16/20 Range/Units 18:00 20:00 20:00 WBC (4.0-10.0) 10^3/ uL RBC (4.1-5.3) 10^6/u L Hgb (11.7-16.6) g/dL Hct (42.0-52.0) % MCV (80-94) fL MCH (28.0-34.0) pg MCHC (30.0-36.0) g/dL RDW (12.1-15.1) % Plt Count (130-400) 10^3/c mm MPV (7.4-10.4) fL Neut % (Auto) % Lymph % (Auto) % Hutchinson % (Auto) % Eos % (Auto) % Baso % (Auto) % Neut # (Auto) (1.8-7.7) 10^3/u L Lymph # (Auto) (0.8-4.8) 10^3/u L Hutchinson # (Auto) (0.2-0.9) 10^3/u L Eos # (Auto) (0.0-0.8) 10^3/u L Baso # (Auto) (0.0-0.1) 10^3/u L Nucleated RBC % (a uto) % Nucleated RBCs # /100WBC D-Dimer <= 0.27 (0-0.59) ug/mIFE U Sodium (136-145) mmol/L Potassium (3.5-5.1) mmol/L Chloride (98-107) mmol/L Carbon Dioxide (22-29) mmol/L Anion Gap (5-19) BUN (8-23) mg/dL Creatinine (0.7-1.2) mg/dL GFR Calculation Glucose (65-115) mg/dL Calculated Osmolal ity (285-295) mOsm/k g Calcium (8.5-10.5) mg/dL Magnesium 1.8 (1.7-2.3) mg/dL Total Bilirubin (0.15-1.2) mg/dL AST (0-40) U/L ALT (0-41) U/L Alkaline Phosphata se (40-130) IU/L Creatine Kinase (39-308) U/L Troponin T Baselin e (0-15) ng/L Troponin T 120 Min [place] 23.80 H (0-15) ng/L Delta Troponin T -3.20 L (0-10) ABS# Total Protein (6.6-8.7) g/dL Albumin (3.5-5.2) g/dL Globulin (1.3-4.6) g/dL Lipase (13-60) U/L TSH 1.48 (0.27-4.20) uIU/ mL Urine Color (Yellow) Urine Appearance (CLEAR) Urine pH (5-7) Ur Specific Gravit y (1.005-1.030) Urine Protein (Negative) Urine Glucose (UA) (Normal) Urine Ketones (Negative) Urine Blood (Negative) Urine Nitrate (Negative) Urine Bilirubin (Negative) Urine Urobilinogen (Negative) mg/dL Ur Leukocyte Anali ase (Negative) Urine RBC (0-2) /hpf Urine WBC (0-5) /hpf Ur Squamous Epith Cells (0-5) /hpf Amorphous Sediment Urine Bacteria (NONE) /hpf 09/16/20 Range/Units 20:09 WBC (4.0-10.0) 10^3/ uL RBC (4.1-5.3) 10^6/u L Hgb (11.7-16.6) g/dL Hct (42.0-52.0) % MCV (80-94) fL MCH (28.0-34.0) pg MCHC (30.0-36.0) g/dL RDW (12.1-15.1) % Plt Count (130-400) 10^3/c mm MPV (7.4-10.4) fL Neut % (Auto) % Lymph % (Auto) % Hutchinson % (Auto) % Eos % (Auto) % Baso % (Auto) % Neut # (Auto) (1.8-7.7) 10^3/u L Lymph # (Auto) (0.8-4.8) 10^3/u L Hutchinson # (Auto) (0.2-0.9) 10^3/u L Eos # (Auto) (0.0-0.8) 10^3/u L Baso # (Auto) (0.0-0.1) 10^3/u L Nucleated RBC % (a uto) % Nucleated RBCs # /100WBC D-Dimer (0-0.59) ug/mIFE U Sodium (136-145) mmol/L Potassium (3.5-5.1) mmol/L Chloride (98-107) mmol/L Carbon Dioxide (22-29) mmol/L Anion Gap (5-19) BUN (8-23) mg/dL Creatinine (0.7-1.2) mg/dL GFR Calculation Glucose (65-115) mg/dL Calculated Osmolal ity (285-295) mOsm/k g Calcium (8.5-10.5) mg/dL Magnesium (1.7-2.3) mg/dL Total Bilirubin (0.15-1.2) mg/dL AST (0-40) U/L ALT (0-41) U/L Alkaline Phosphata se (40-130) IU/L Creatine Kinase (39-308) U/L Troponin T Baselin e (0-15) ng/L Troponin T 120 Min [place] (0-15) ng/L Delta Troponin T (0-10) ABS# Total Protein (6.6-8.7) g/dL Albumin (3.5-5.2) g/dL Globulin (1.3-4.6) g/dL Lipase (13-60) U/L TSH (0.27-4.20) uIU/ mL Urine Color Yellow (Yellow) Urine Appearance Clear (CLEAR) Urine pH 5.0 (5-7) Ur Specific Gravit y 1.010 (1.005-1.030) Urine Protein Neg (Negative) Urine Glucose (UA) Norm (Normal) Urine Ketones 1+ H (Negative) Urine Blood 2+ H (Negative) Urine Nitrate Negative (Negative) Urine Bilirubin Neg (Negative) Urine Urobilinogen Norm (Negative) mg/dL Ur Leukocyte Anali ase Negative (Negative) Urine RBC 0-4 H (0-2) /hpf Urine WBC None (0-5) /hpf Ur Squamous Epith Cells None (0-5) /hpf Amorphous Sediment Not Reportable Urine Bacteria Trace (NONE) /hpf Imaging Data ^: CT Abd/Pel: Radiologist's impression: [facility] [id number] [address] Scan Report Signed Patient: Jareth Mcqueen Unit #: [id number] : 1940 Age/Sex: 80 / M ADM Date: 09/16/20 Loc: ER Room/Bed: Attending Dr: Ordering Provider/Ordering MD: Drew David DO Date of Service: 09/16/20 Procedure(s): CT abdomen pelvis w con* [id number] Accession Number(s): [id number] Report Number: [id number] PROCEDURE INFORMATION: Exam: CT Abdomen And Pelvis With Contrast Exam date and time: 09/16/2020 6:48 PM Age: 80 years old Clinical indication: Nausea and vomiting; Abdominal pain; Generalized; Prior surgery; Surgery type: Stents; Additional info: Abd pain TECHNIQUE: Imaging protocol: Computed tomography of the abdomen and pelvis with intravenous contrast. Radiation optimization: All CT scans at this facility use at least one of these dose optimization techniques: automated exposure control; mA and/or kV adjustment per patient size (includes targeted exams where dose is matched to clinical indication); or iterative reconstruction. Contrast material: VISI 320; Contrast volume: 95 ml; Contrast route: INTRAVENOUS (IV); COMPARISON: No relevant prior studies available. RADIATION DOSE METRICS: Total DLP (mGy-cm): 870.97 FINDINGS: Lungs: Mild atelectasis versus infiltrate in the posterior portion of the left lung base. Right lung base is clear. Mediastinal space: There is a small hiatal hernia present. Liver: The liver is unremarkable in appearance. Gallbladder and bile ducts: The gallbladder is surgically absent. No biliary dilatation. Pancreas: The pancreas is normal in appearance. No pancreatic duct dilatation. Spleen: The spleen is normal in size and appearance. Adrenal glands: The adrenal glands appear within normal limits. Kidneys and ureters: 2 mm nonobstructing right renal calculus. No renal cysts or masses. No hydronephrosis. Normal bilateral ureters. Stomach and bowel: Diverticulosis of the colon; no acute diverticulitis. No acute gastric abnormality demonstrated. The small bowel is unremarkable as demonstrated. Appendix: No evidence of appendicitis. Intraperitoneal space: No pneumoperitoneum. No significant fluid collection. Vasculature: The aorta is atherosclerotic. No aortic aneurysm. Lymph nodes: No pathologically enlarged lymph nodes. Urinary bladder: The urinary bladder is unremarkable in appearance. 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 Bones/joints: Degenerative spine changes. No acute fracture. Soft tissues: Unremarkable. CT/CT abdomen pelvis w con* [id number] IMPRESSION: 1. Mild atelectasis versus infiltrate in the posterior portion of the left lung base. 2. Brachytherapy seeds are noted in the prostate gland. 3. 2 mm nonobstructing right renal calculus. No renal cysts or masses. No hydronephrosis. Normal bilateral ureters. 4. Diverticulosis of the colon; no acute diverticulitis. Radiation Dose CTDIVOL = (mGy): DLP = 870.97 (mGy-cm) EKG Data ^: EKG 1: Attestation: I personally reviewed and interpreted this EKG as follows: EKG interpretation date: 09/16/20 EKG interpretation time: 21:20 Interpretation: afib hr [address] or t wave abnormalities qrs 90 qtc 380 Discharge Plan Discharge Patient Disposition: Admitted As Inpatient Admit Provider: Hernan Michelle Clinical Impression: Atrial fibrillation with RVR Abdominal pain Qualifiers: Abdominal location: generalized Qualified Code(s): R10.84 - Generalized abdominal pain Condition: Stable Discharge Diet: Advance as tolerated Discharge Activity: Resume usual activity Coding Level of Care Code ED Rescue Instructor for Chg Fwd Exam Comprehensive
[2020-09-16] MEDS: sodium chloride 0.9% 1,000 ML 999 ML IV ×2 (18:17→20:10)
[2020-09-16] MEDS: ondansetron 2 mg/ML SDV 2 mL 4 MG IVP (18:17)
[2020-09-16 18:18] LABS: Basophils % 0.4 %; Eosinophils # 0.1 10^3/uL (0.0-0.8); Eosinophils % 0.8 %; Hematocrit 39.8 % (42.0-52.0); Hemoglobin 13.1 g/dL (11.7-16.6); Lymphocytes # 0.4 10^3/uL (0.8-4.8); Lymphocytes % 3.9 %; Mean Corpuscular HGB Conc 32.9 g/dL (30.0-36.0); Mean Corpuscular Hemoglobin 30.3 pg (28.0-34.0); Mean Corpuscular Volume 91.9 fL (80-94); Mean Platelet Volume 8.8 fL (7.4-10.4); Monocytes % 10.9 %; Neutrophils # 7.52 10^3/uL (1.8-7.7); Neutrophils % 83.7 %; Nucleated Red Blood Cells % 0 %; Platelet Count 204 10^3/cmm (130-400); Red Blood Count 4.33 10^6/uL (4.1-5.3); Red Cell Distribution Width 12.8 % (12.1-15.1)
[2020-09-16 18:50] LABS: Alanine Aminotransferase 15 U/L (0-41); Albumin Level 4.1 g/dL (3.5-5.2); Alkaline Phosphatase 84 IU/L (40-130); Anion Gap 16.2 (5-19); Aspartate Amino Transferase 19 U/L (0-40); Blood Urea Nitrogen 25 mg/dL (8-23); Calcium 9.3 mg/dL (8.5-10.5); Carbon Dioxide 27 mmol/L (22-29); Chloride 94 mmol/L (98-107); Creatine Phosphokinase 262 U/L (39-308); Globulin 2.7 g/dL (1.3-4.6); Glucose 120 mg/dL (65-115); Lipase 19 U/L (13-60); Osmolality Calculated 282 mOsm/kg (285-295); Potassium 4.2 mmol/L (3.5-5.1); Sodium 133 mmol/L (136-145); Total Bilirubin 0.4 mg/dL (0.15-1.2); Total Protein 6.8 g/dL (6.6-8.7)
[2020-09-16 18:52] LABS: Troponin(5th) Baseline 27 ng/L (0-15)
[2020-09-16] MEDS: iodixanol 320 mg/mL 100mL Btl IV (19:04)
--- NOTE | 2020-09-16 19:52 | ECG_ITS ---
[facility] Test Date: 2020-09-16 Pat Name: Jareth Mcqueen Department: Room: Gender: Male Pole Classifier: : [id number] Requested By: Drew Fleming Order Number: [id number] Marti MD: Joshua Patel M.D. Measurements Intervals [place] Rate: 79 P: LA: QRS: 38 QRSD: 90 T: 25 QT: 346 QTc: 397 Interpretive Statements ATRIAL FIBRILLATION ABNORMAL RHYTHM ECG Compared to ECG 09/16/2020 17:42:39 ST (T wave) deviation no longer present Electronically Signed On 09-18-2020 18:06:25 EGG CASER by Joshua Patel M.D. [id number]
[2020-09-16 20:24] LABS: Add Urine Microscopic? YES; Bilirubin Urine Neg (Negative); Blood Urine 2+ (Negative); Glucose Urine UA Norm (Normal); Ketones Urine 1+ (Negative); Leukocyte Esterase Urine Negative (Negative); Nitrate Urine Negative (Negative); Protein Urine Neg (Negative); Urine Appearance Clear (CLEAR); Urine Color Yellow (Yellow); Urobilinogen Urine Norm (Negative)
[2020-09-16 20:25] LABS: Add Urine Culture? No; Bacteria Urine TRACE /hpf; RBC Urine 0-4 /hpf (0-2)
--- NOTE | 2020-09-16 21:49 | P.HP_ITS ---
Providers/Chief Complaint Chief Complaint: NAUSEA History of Present Illness Jareth Mcqueen is a 80 year old male who has history of established coronary disease, preserved ejection fraction, chronic kidney stage III nonoxygen dependent COPD presented with chief complaint abdominal pain. Patient is stating that his abdominal pain started 3 to 4 days ago. There is no association of food intake with his abdominal pain, he has not used any antibiotics recently, no fever at the assisted living. Patient is denying vomiting but he is endorsing nausea with abdominal pain he is describing his abdominal pain is diffuse 10/10 nagging sensation radiating towards his back. He is not able to eat because he feels nauseous right after eating. He has not noticed any chest pain shortness of breath. He also experienced diarrhea with this abdominal pain, he has been having loose stools quite frequently. Patient is endorsing that lately he has been noticing resting tremors, he sometimes feels extremely weak and not able to walk. I have called his niece Annmarie, Annmarie is telling me that in last 2 to 3 months he has been experiencing a lot of resting tremors, as per Annmarie, Covid test was done at the assisted living which was negative, he was sent to the hospital because of worsening ab dominal pain. Diagnostics in the ER revealed normal CBC, BMP shows mild hyponatremia, acute on chronic kidney disease, CT abdomen revealed nonobstructing renal calculi otherwise unremarkable I have requested a lactic acid, D-dimer started him on heparin drip, his EKG showing new onset A. fib my concern is high for acute mesenteric ischemia Review of Systems Const: Reports: body aches and fatigue; Denies: fever(s) Eyes: Denies: change in vision ENMT: Denies: throat pain Card: Denies: chest pain Resp: Denies: dyspnea GI: Reports: abdominal pain, nausea and diarrhea : Denies: flank pain Musc: Reports: extremity swelling and muscle cramps Skin/Breast: Reports: lesions Neuro: Reports: difficulty walking Psych: Denies: anxiety Endo: Denies: polyuria Biju/Lymph: Denies: easy bruising All/Imm: Denies: urticaria Medications/Allergies Home Medications Medication Instructions Recorded Confirmed Last Taken Type Ex-Lax Maximum Strength 25 mg PO DAILY@199904/10/20 09/06/20 09/05/20 History acetaminophen 1,000 mg PO Q6H PRN 04/10/20 09/06/20 09/05/20 History albuterol sulfate [Ventolin HFA] 2 puff INHALATION Q4H PRN 04/10/20 09/06/20 07/04/20 History azelastine 2 spray INTRANASAL BID@04/10/20 09/06/20 09/06/20 History cetirizine 10 mg PO DAILY@79904/10/20 09/06/20 09/06/20 History cholecalciferol (vitamin D3) 1,250 mcg PO Q7D 04/10/20 09/06/20 08/30/20 History dicyclomine 10 mg PO TID PRN 04/10/20 09/06/20 Unknown History donepezil 10 mg PO BEDTIME@04/10/20 09/06/20 09/05/20 History ferrous sulfate 325 mg PO DAILY@04/10/20 09/06/20 09/06/20 History fluticasone propionate 2 spray INTRANASAL DAILY@62904/10/20 09/06/20 09/06/20 History gabapentin 300 mg PO TID 04/10/20 09/06/20 09/05/20 History lisinopril 20 mg PO BID@04/10/20 09/06/20 09/06/20 History meclizine 25 mg PO TID PRN 04/10/20 09/06/20 09/06/20 History nitroglycerin 0.4 mg SUBLINGUAL PRN 04/10/20 09/06/20 06/27/20 History omeprazole 40 mg PO DAILY@62904/10/20 09/06/20 09/06/20 History prochlorperazine maleate 10 mg PO Q8H PRN 04/10/20 09/06/20 Unknown History Triple Antibiotic See Rx Instructions .ROUTE .COMPLEX 06/27/20 09/06/20 Unknown History furosemide 20 mg PO DAILY@06/27/20 09/06/20 09/06/20 History hydrochlorothiazide 25 mg PO DAILY@08/27/20 09/06/20 09/06/20 History aspirin [Aspir-81] 81 mg PO DAILY@62909/06/20 09/06/20 09/06/20 History atorvastatin 10 mg PO DAILY@199909/06/20 09/06/20 09/05/20 History clopidogrel 75 mg PO DAILY@62909/06/20 09/06/20 09/06/20 History dicyclomine 10 mg PO TID PRN 09/06/20 09/06/20 Unknown History diphenhydramine-acetaminophen 1 tab PO BEDTIME@199909/06/20 09/06/20 09/05/20 History [Acetaminophen PM] tamsulosin 0.4 mg PO DAILY@199909/06/20 09/06/20 09/05/20 History tramadol 100 mg PO DAILY@62909/06/20 09/06/20 09/06/20 History ondansetron 4 mg PO Q6H PRN #14 tab 09/16/20 Unknown Rx Allergies Allergy/AdvReac Type Severity Reaction Status Date / Time No Known Allergies Allergy Verified 09/16/20 17:47 PFSH Acute PFSH: Medical History Benign essential HTN -continue oral antihypertensives Chronic diastolic CHF (congestive heart failure) COPD (chronic obstructive pulmonary disease) -not oxygen dependent at baseline Coronary artery disease -s/p stenting x 3 Stage 3a chronic kidney disease Surgical History History of coronary artery stent placement -x 3 Family History Father CAD (coronary artery disease) Mother CAD (coronary artery disease) Social History Smoking and tobacco status: former smoker Quit status (tobacco): has quit using tobacco Year quit tobacco: 30 yrs ago Alcohol intake: never Housing: Assisted Living Facility Vitals/I&O/Wt Last Vital Signs Temp 98.1 F 09/16/20 17:38 Pulse 90 09/16/20 21:15 Resp 15 09/16/20 21:15 BP 157/87 09/16/20 21:15 Pulse Ox 97 09/16/20 21:15 09/16/20 09/16/20 09/16/20 06:59 14:59 22:59 Intake Total 1000 / 1000 Balance 1000 / 1000 Weight last 48 hrs Weight 86.183 kg Physical Exam Narrative: EXAM NARRATIVE: Elderly male Who appears younger than stated age does not look dehydrated Patient is complaining of abdominal pain 05/31, this pain is diffuse, no severe tenderness on deep palpation, no rigidity or guarding, his pain is not in proportionate to clinical exam Lower extremity 1+ pitting edema bilaterally No sign of cellulitis ischemia or gangrene Flat affect, poker face, resting tremors of upper extremities noticed gait was not examined, resting tremors resolved with intentional movement No active neurological deficit NIH 0 Bilateral mild ptosis of eyelids noted Patient is coherent alert oriented x3 GCS 15 Data : 09/16/20 18:00 09/16/20 18:00 A&P Assessment and plan (1) Abdominal pain: Status: Acute Qualifiers: Abdominal location: generalized Qualified Code(s): R10.84 - Generalized abdominal pain (2) Acute worsening of stage 3 chronic kidney disease: Status: Acute (3) New onset atrial fibrillation: Status: Acute Additional A&P Information Acute abdominal pain Concern for acute mesenteric ischemia with new onset atrial fibrillation RVR D-dimer requested We will start him on heparin drip CT abdomen revealed diverticulosis nonobstructing renal calculi Would request lactic acid however no leukocytosis clinical exam does not show severe peritonitis Rule out C. difficile because of profuse diarrhea Assisted living facility COVID-19 test was negative Not a candidate to obtain CTA abdomen pelvis because of worsening creatinine Acute on chronic worsening chronic kidney disease No signs of UTI, I would hold his lisinopril No signs of hydronephrosis on CT abdomen Patient has been having diarrhea for last 2 to 3 days Would do gentle hydration overnight and discontinue it in the morning, monitor urine output and correlate with creatinine New onset atrial fibrillation with RVR Currently on Cardizem drip 10 milligrams per hour We will start him on heparin drip, not a candidate of Lovenox or Eliquis because of age and high creatinine [id number] 5 Resting tremors with recent recurrent falls Patient does show signs of Parkinson's I would hold off on adding dopaminergic medications for now because of active abdominal pain Baseline dementia without acute exacerbation I will keep him on memantine for now History of coronary artery disease No acute chest pain, EKG is not showing ischemic or infarctive changes I would continue his aspirin and Plavix for now along with atorvastatin Full code Cardiac diet DVT prophylaxis currently on heparin drip Next of kin: niece her name is Annmarie: Updated Attestations Medical Necessity Statement*: Anticipating stay in the hospital cross more than 2 midnights currently need heparin drip for possible acute mesenteric ischemia, need to rule out C. difficile, currently on Cardizem drip 10 mg/h for new onset A. fib RVR Time Spent in Patient Care: (>than 50% of time spent in counselling and/or direct pt care on unit) . 50mins Coding Level of Care Code Acute Kiln Car Unloader for Chg Fwd Diagnoses Abdominal pain R10.84 Abdominal location: generalized Acute worsening of stage 3 chronic kidney disease N18.30 New onset atrial fibrillation I48.91
[2020-09-16 22:17] LABS: Magnesium 1.8 mg/dL (1.7-2.3); Thyroid Stimulating Hormone 1.48 uIU/mL (0.27-4.20)
--- NOTE | 2020-09-16 22:34 | PC.NURSE ---
patient repositioned and bed changed with assist from second nurse. patient used urinal and was changed into a gown.
[2020-09-16 22:59] LABS: D Dimer <= 0.27 ug/mIFEU (0-0.59)
--- NOTE | 2020-09-16 23:52 | ECG_ITS ---
[facility] Test Date: 2020-09-16 Pat Name: Jareth Mcqueen Department: Room: Gender: Male Industrial Design Engineer: : 1940 Requested By: Drew Fleming Order Number: [id number] Marti MD: Sabas Velez M.D. Measurements Intervals [place] Rate: 97 P: [place]: QRS: 40 QRSD: 86 T: 29 QT: 308 QTc: 391 Interpretive Statements ATRIAL FIBRILLATION MODERATE ST DEPRESSION [0.05+ mV ST DEPRESSION] Compared to ECG 09/06/2020 15:06:20 ST (T wave) deviation now present Sinus rhythm no longer present Electronically Signed On 09-16-2020 18:13:19 LOCKMAKER by Sabas Velez M.D. [id number]
[2020-09-17] VITALS (101 sets, daily range): BP systolic 84–158; BP diastolic 49–90; PULSE 59–93; RESP 8–19; TEMP 36.8–37.2; O2SAT 89–99
[2020-09-17 00:05] LABS: Platelet Count 208 10^3/cmm (130-400)
[2020-09-17] MEDS: sodium chloride 0.9% 1,000 ML 30 ML IV (00:26)
[2020-09-17 00:29] LABS: Lactate (Lactic Acid level) 1.6 mmol/L (0.5-2.2)
[2020-09-17] MEDS: heparin drip 25,000 UNIT/500 ML PREMIX 28 UNIT IV (00:32)
[2020-09-17] MEDS: nystatin powder 15 gm Btl 1 APPLIC TOPICAL ×2 (00:43→19:32)
--- NOTE | 2020-09-17 00:59 | PC.NURSE ---
Patient arrived to ICU at 2319, lung sounds clear, BS active, heparin gtt, cardizem, NS @ 30, magnesium sulfate, running currently, dorsal pedal pulses present bilaterally 2+. Mendez inserted due to mulitple lines, reddened groin, nystatin applied per orders, patient a&o x3. Continue care.
[2020-09-17 06:57] LABS: Partial Thromboplastin Time 131.2 SECONDS (23.9-36.7)
[2020-09-17 07:00] LABS: Basophils % 0.3 %; Eosinophils # 0.1 10^3/uL (0.0-0.8); Eosinophils % 0.8 %; Lymphocytes # 0.6 10^3/uL (0.8-4.8); Lymphocytes % 9.1 %; Mean Corpuscular HGB Conc 33.3 g/dL (30.0-36.0); Mean Corpuscular Hemoglobin 30.1 pg (28.0-34.0); Mean Corpuscular Volume 90.4 fL (80-94); Mean Platelet Volume 9.2 fL (7.4-10.4); Monocytes # 0.9 10^3/uL (0.2-0.9); Monocytes % 15.4 %; Neutrophils # 4.47 10^3/uL (1.8-7.7); Neutrophils % 74.1 %; Nucleated Red Blood Cells % 0 %; Platelet Count 184 10^3/cmm (130-400); Red Blood Count 3.65 10^6/uL (4.1-5.3); Red Cell Distribution Width 12.8 % (12.1-15.1)
[2020-09-17 07:02] LABS: Anion Gap 13.8 (5-19); Blood Urea Nitrogen 21 mg/dL (8-23); Calcium 8.3 mg/dL (8.5-10.5); Carbon Dioxide 23 mmol/L (22-29); Chloride 101 mmol/L (98-107); Glucose 101 mg/dL (65-115); Osmolality Calculated 281 mOsm/kg (285-295); Potassium 3.8 mmol/L (3.5-5.1); Sodium 134 mmol/L (136-145)
[2020-09-17] MEDS: tamsulosin 0.4 mg Capsule PO (08:38)
[2020-09-17] MEDS: aspirin 81 mg EC Tablet PO (08:38)
[2020-09-17] MEDS: memantine 5 mg tablet 10 MG PO (08:38)
[2020-09-17] MEDS: acetaminophen 325 mg Tablet 650 MG PO (08:38)
[2020-09-17] MEDS: clopidogrel 75 mg Tablet PO (08:39)
[2020-09-17] MEDS: FUROsemide 20 mg Tablet PO (08:39)
[2020-09-17] MEDS: atorvastatin 40 mg Tablet 20 MG PO (08:39)
--- NOTE | 2020-09-17 09:47 | PC.CHAP ---
Pastoral Care Encounter/Spiritual Assessment Type of Contact [] Declined cartridge feeder visit [] Patient/Family/Request visit [] Outpatient visit [] Follow-up visit [] Physician referral [] Code/Alert [x] Routine visit [] Staff referral [] Actively dying [] Patient sleeping [] Family support [] [] Out of room [] Palliative care [] [] Receiving care in room [] Pre-surgical visit [] Trauma [] Long length of stay [x] ICU visit [] Other: Relational/Emotional Strength [] Patient feels connected with others/family/visitors/staff [] Distress [] Loneliness/isolation [] Abandonment Spirituality of Patient [] Person of Belen [] Attends Mormon of their Belen [] Believes in Prayer [] Reads Bible or Restorationist materials [] There are Spiritual issues to be addressed Nephrologist Interventions [x] Prayer [x] Active listening [x] Non-anxious presence [x] Spiritual/emotional support [] Crisis/trauma care [] Spiritual counseling [] Bereavement support [] Provided bereavement packet [] Provided Bible/devotional materials [] Provided toy/stuffed animal, coloring book to patient or family member [] Provided Communion [] Anointing/[place] [] Salvation [x] Completed spiritual assessment [] Other: Impact on Illness or Injury [] Angry [] Fearful [] Anxious [] Often cries [] Exhaustion [] Unable to work [] Unable to attend voodoo [] Unable to walk/stand [] Unable to read [] Unable to drive [] Unable to eat/drink [] Unable to sleep [] Unable to be with family [] Patient intubated [] Other: Summary patient feeling much stronger than yesterday.. has issues with vision, got some tissues and wash cloth for face. Time spent with patient 10 min
--- NOTE | 2020-09-17 11:07 | XR_ITS ---
WS: [id number] Exam: XR chest 1V portable [id number] Date/Time of Exam: 09/17/2020 11:07 AM Reason For Exam: evalute for pneumonia Comparison 08/26/2020. Abnormal pulmonary density seen in the left retrocardiac region suggesting atelectasis and possible p ulmonary infiltrate. There may also be infiltrate and atelectasis in the posterior right lung base be hind the diaphragm. The remaining lung emery are clear there is pulmonary hyperinflation. Heart size is normal. The mediastinum is not widened. Coronary artery calcifications. Chronic change with mild calcified pleural plaque formation in the bilateral upper lung zones. Degenerative change and mild th oracic scoliosis. Recommendations: Follow-up detailed PA and lateral chest radiograph in several days would be helpful for ongoing evaluation. XR/XR chest 1V portable [id number] IMPRESSION: 1. Atelectasis and probable infiltrates in the bilateral lower lung zones. This is in the left retrocardiac region and also the posterior right lung base behi nd the diaphragm. 2. Pulmonary hyperinflation which may indicate obstructive lung disease. Chroni c pulmonary changes.
[2020-09-17] MEDS: enoxaparin 100 mg/mL Syringe 90 MG SUBCUT (12:01)
[2020-09-17] MEDS: dilTIAZem 30 mg Tablet PO ×3 (12:01→23:41)
[2020-09-17] MEDS: pantoprazole DR 40 mg Tablet PO (12:01)
--- NOTE | 2020-09-17 15:24 | P.PN_ITS ---
Subjective Subjective: Interval history: Overnight labs and H&P reviewed. Abdominal pain and nausea is improved this morning. He converted into sinus rhythm overnight, currently heart rate is at 64 bpm. Medications: Reviewed: Yes Vitals/I&O/Wt Last Vital Signs Temp 98.2 F 09/17/20 04:00 Pulse 59 L 09/17/20 11:00 Resp 13 09/17/20 11:00 BP 98/62 09/17/20 11:00 Pulse Ox 92 09/17/20 06:05 09/17/20 09/17/20 09/17/20 06:59 14:59 22:59 Intake Total 60 / 2060 659.567 / 659.567 Output Total 350 / 350 Balance -290 / 1710 659.567 / 659.567 Weight last 48 hrs Weight 86.183 kg Physical Exam Narrative: EXAM NARRATIVE: GEN: Awake, alert and oriented, no acute distress CVS: S1S2 N RS: CTA B/L Abd: Soft, nt/nd , bs+ WIND ENERGY PROJECT MANAGER: no focal neuro deficits Urinary Catheter Management^: Mendez: Cath Placed During This Visit: yes Reason for Continuing Indwelling Catheter: Accurate Measurement of Urinary Output in Critically Ill Patients Urinary Catheter Date of Insertion: 09/17/20 Urinary Catheter Time of Insertion: 00:46 Data : 09/17/20 06:30 09/17/20 06:30 A&P Assessment and plan (1) Abdominal pain: Status: Acute Qualifiers: Abdominal location: generalized Qualified Code(s): R10.84 - Generalized abdominal pain (2) Acute worsening of stage 3 chronic kidney disease: Status: Acute (3) New onset atrial fibrillation: Status: Acute Additional A&P Information Acute abdominal pain Lower concern for acute mesenteric ischemia at this time given normal findings of CT with contrast, normal lactate and resolution of symptoms overnight. Rule out C. difficile because of profuse diarrhea, has not had any bowel movement since this morning Assisted living facility COVID-19 test was negative on 09/15/2020 Acute on chronic worsening chronic kidney disease No signs of UTI, I would hold his lisinopril No signs of hydronephrosis on CT abdomen Patient has been having diarrhea for last 2 to 3 days Discontinue IV hydration given 1+ pitting edema bilateral lower extremities New onset atrial fibrillation with RVR Converted to sinus rhythm overnight, currently heart rate at 64 bpm, will start overlap with p.o. Cardizem 30 mg every 6 hours and discontinue infusion [id number] 5, started on heparin drip overnight. We will change it to renally dosed Lovenox at this present time and then aim to discharge with Eliquis also renally dosed. Resting tremors with recent recurrent falls: Baseline dementia History of coronary artery disease No acute chest pain, EKG is not showing ischemic or infarctive changes , D/c ASA, continue plavix and anticoagulation. ASA discontinued to minimize risk of bleeding Full code Cardiac diet DVT prophylaxis lovenox Attestations Medical Necessity Statement*: a fib with rvr, transitioing from iv infusion to po cardizem, close monitoring Coding Level of Care Code Acute Infrastructure Consultant for Chg Fwd Diagnoses Abdominal pain R10.84 Abdominal location: generalized Acute worsening of stage 3 chronic kidney disease N18.30 New onset atrial fibrillation I48.91
--- NOTE | 2020-09-17 15:55 | PC.RESP ---
Pulmonary Rehab information sent to patient.
[2020-09-18] VITALS (16 sets, daily range): BP systolic 114–153; BP diastolic 66–101; PULSE 69–110; RESP 10–20; TEMP 36.4–37.6; O2SAT 80–97
[2020-09-18] MEDS: dilTIAZem 30 mg Tablet PO ×2 (05:29→11:50)
[2020-09-18] MEDS: acetaminophen 325 mg Tablet 650 MG PO (05:33)
--- NOTE | 2020-09-18 06:17 | PC.NURSE ---
uneventful night, continent of bladder, C/O LAGUERRE PRN Tylenol administered per request 0600, AO x3, follows commands, VS remained WNL
[2020-09-18] MEDS: atorvastatin 40 mg Tablet 20 MG PO (09:10)
[2020-09-18] MEDS: tamsulosin 0.4 mg Capsule PO (09:10)
[2020-09-18] MEDS: clopidogrel 75 mg Tablet PO (09:10)
[2020-09-18] MEDS: memantine 5 mg tablet 10 MG PO (09:10)
[2020-09-18] MEDS: FUROsemide 20 mg Tablet PO (09:10)
[2020-09-18] MEDS: nystatin powder 15 gm Btl 1 APPLIC TOPICAL ×2 (09:11→17:05)
[2020-09-18] MEDS: pantoprazole DR 40 mg Tablet PO (09:11)
--- NOTE | 2020-09-18 09:51 | PC.NURSE ---
Patient transferred to CSU via wheelchair. Report given to Keyonna Wilder RN
[2020-09-18] MEDS: enoxaparin 100 mg/mL Syringe 90 MG SUBCUT (11:50)
--- NOTE | 2020-09-18 14:21 | USCV_ITS ---
Jareth Mcqueen Age: 80 Gender: M : 1940 Exam Date: 09/18/2020 16:24 Ordering Phys: Jaky Bernabe MD Technologist: Olivia Garcia Exam Location[place] [facility] [place] [facility] [place] Indication: DVT HISTORY: DVT. PROCEDURES: Venous duplex imaging was performed in bilateral lower extremities. The following venous structures were evaluated: common femoral vein, profunda vein, proximal portion of the greater saphenous vein, superficial femoral vein, and the popliteal vein. In addition, the posterior tibial and peroneal trunk were evaluated. Serial compression, augmentation maneuvers, and spectral Doppler flow evaluation were performed. FINDINGS: Normal 2-D Doppler and augmentation and compressibility throughout the lower extremity venous structures. Additional imaging through the proximal calf veins also reveals no thrombus. Limited evaluation of the greater saphenous vein is patent with no thrombus.. CONCLUSIONS No evidence of right lower extremity DVT. No evidence of left lower extremity DVT. Chet Hastings MD (Electronically Signed) Final Date: 18 September 2020 17:02 S
--- NOTE | 2020-09-18 14:21 | PM.PN ---
Subjective Subjective: Interval history: Patient's heart rate remains controlled, he is in sinus rhythm heart rate between 80 to 90 bpm. No complains of palpitations or dyspnea. Reports poor appetite. No recurrence of nausea or vomiting. Has not had a bowel movement yet. No further episodes of diarrhea. Passing flatus. 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 neuro deficits Ext: LLE pitting edema+, right minimal edema Urinary Catheter Management^: Mendez: Cath Placed During This Visit: yes Reason for Continuing Indwelling Catheter: Accurate Measurement of Urinary Output in Critically Ill Patients Urinary Catheter Date of Insertion: 09/17/20 Urinary Catheter Time of Insertion: 00:46 Data : 09/17/20 06:30 09/17/20 06:30 A&P Assessment and plan (1) Abdominal pain: Status: Acute Qualifiers: Abdominal location: generalized Qualified Code(s): R10.84 - Generalized abdominal pain (2) Acute worsening of stage 3 chronic kidney disease: Status: Acute (3) New onset atrial fibrillation: Status: Acute Additional A&P Information Acute abdominal pain Now resolved No further episodes of nausea vomiting or diarrhea. Patient has not had a bowel movement since presentation here. CT of the abdomen without any acute events, diverticulosis without evidence of diverticulitis. Patient says his appetite has been declining over the last 6 to 7 months. Would add mirtazapine 7.5 mg p.o. at bedtime, this will also additionally help with sleeping. Acute on chronic worsening chronic kidney disease No signs of UTI, lisinopril has been discontinued No signs of hydronephrosis on CT abdomen Mendez catheter was removed yesterday, patient urinating into a urinal currently, no issues hypertension at this present time. New onset atrial fibrillation with RVR Converted to sinus rhythm overnight, heart rate between 80-90 today, intermittently on telemetry noted to be up to 130 bpm. Increase Cardizem to 180 mg sustained-release over 24 hrs [id number] 5, currently on Lovenox, transition to po eliquis 2.5 milligrams twice daily. Using lower dose of Eliquis given creatinine greater than 1.5 and age at 80, anemia with hemoglobin at 10. Resting tremors with recent recurrent falls: This appears to be his recent baseline, patient is getting outpatient work-up for possible Parkinson's disease. PT assessment appreciated. Would benefit from senior care placement with skilled therapy. Requested Covid antigen per facility. Last Covid PCR on Tuesday checked at his assisted living was negative. Performed September 06, 2020 without any acute intracranial abnormality Baseline dementia History of coronary artery disease No acute chest pain, EKG is not showing ischemic or infarctive changes , D/c ASA, continue plavix and anticoagulation. We will plan to discharge with Eliquis and Plavix, aspirin will be discontinued upon discharge. Recent stress test from August 27, 2020 showed no evidence of reversible ischemia. LVEF noted to be 69% on the scan. Cardiogram with LVEF of 55 to 60%, gross regional wall motion abnormalities. Normal diastolic function. Bilateral lower extremity edema, right greater than left side, pitting in nature. Unlikely to be related to CHF given normal recent stress test and echocardiogram findings. Check lower extremity duplex to rule out DVT. D-dimer was negative upon admission. Full code Cardiac diet DVT prophylaxis Eliquis Attestations Medical Necessity Statement*: Transition to oral Eliquis starting tomorrow, increase dose of Cardizem today, disposition planning, placement at SNF. Coding Level of Care Code Acute Garment Manufacturing Supervisor for Desig Cindy Diagnoses Abdominal pain R10.84 Abdominal location: generalized Acute worsening of stage 3 chronic kidney disease N18.30 New onset atrial fibrillation I48.91
[2020-09-18 16:49] LABS: SARS Covid-2 Antigen Negative (Negative)
[2020-09-18] MEDS: ondansetron 2 mg/ML SDV 2 mL 4 MG IVP (17:11)
[2020-09-18] MEDS: mirtazapine 15 mg Tablet 7.5 MG PO (21:08)
[2020-09-19] VITALS (7 sets, daily range): BP systolic 104–130; BP diastolic 61–80; PULSE 74–97; RESP 18–20; TEMP 36.6–37.1; O2SAT 96–97
--- NOTE | 2020-09-19 05:05 | PC.NURSE ---
NURSE NOTE: PT ALERT TO PERSON, PLACE AND SOMETIMES SITUATION. MOVES ALL EXTREMITIES AND FOLLOWS COMMANDS. DENIES PAIN THIS SHIFT. INCONTINENT OF URINE X1 TIME. ALL VS AND ASSESSMENTS CHARTED. WILL CONTINUE TO MONITOR.
[2020-09-19] MEDS: tamsulosin 0.4 mg Capsule PO (08:32)
[2020-09-19] MEDS: clopidogrel 75 mg Tablet PO (08:32)
[2020-09-19] MEDS: atorvastatin 40 mg Tablet 20 MG PO (08:32)
[2020-09-19] MEDS: memantine 5 mg tablet 10 MG PO (08:33)
[2020-09-19] MEDS: pantoprazole DR 40 mg Tablet PO (08:33)
[2020-09-19] MEDS: apixaban 5 mg Tablet 2.5 MG PO (08:33)
[2020-09-19] MEDS: FUROsemide 20 mg Tablet PO (08:33)
--- NOTE | 2020-09-19 10:45 | DCPLANNER ---
IMM completed with pt on 09/19/20 @ 6196. Pt given a copy of rights.
--- NOTE | 2020-09-19 13:39 | P.DS_ITS ---
Discharge Providers Date of Admission: 09/16/20 20:55 Date of Discharge: September 19, 2020 Attending Provider at Admission: Hernan Michelle MD Attending Provider at Discharge: Jaky Bernabe MD Diagnoses at Discharge Discharge Diagnosis (1) Abdominal pain: Status: Acute Qualifiers: Abdominal location: generalized Qualified Code(s): R10.84 - Generalized abdominal pain (2) Acute worsening of stage 3 chronic kidney disease: Status: Acute (3) New onset atrial fibrillation: Status: Acute Reason for Visit Reason for Visit: NAUSEA Hospital Course Hospital Course Jareth Mcqueen is a 80 year old male who has history of established coronary disease, preserved ejection fraction, chronic kidney stage III nonoxygen dependent COPD presented with chief complaint abdominal pain. He also had nausea and diarrhea at presentation which has since resolved. Diagnostics in the ER were notable for mild hyponatremia, acute on chronic kidney disease, CT abdomen with nonobstructing renal calculi otherwise unremarkable, normal lactate. Due to concern for ischemic colitis he was initially started on a heparin drip upon admission, this was discontinued the next day once abdominal CT returned without any signs of ischemia, patient's nausea and vomiting resolved, he was tolerating p.o. intake, no signs of peritonitis. He was also discovered to have new onset A. fib with RVR for which she was initially started on a Cardizem infusion upon admission. She has has now been transitioned to Cardizem XL 180 mg daily. With initiation of this medication his heart rate is now controlled at 80 bpm. His [id number] score was noted to be at 5, he was started on anticoagulation initially with Lovenox, transition to Eliquis 2.5 mg p.o. twice daily at discharge. Lower dose of Eliquis is chosen given advanced age and creatinine consistently greater than 1.5. He recently had an extensive cardiac work-up with an echocardiogram does not show any evidence of systolic or diastolic dysfunction, EF was normal. Recent Lexiscan also did not show any signs of reversible ischemia.. Patient did not complain of any chest pain during the course of admission. Hydrochlorothiazide was discontinued in view of hyponatremia. Lisinopril was also held during the course of admission due to SAVANNAH. Patient's blood pressure remained well controlled for the duration of admission therefore antihypertensives have not been continued on discharge. This may be reassessed at the discretion of the SNF physician. Physical Exam Narrative: EXAM NARRATIVE: GEN: Awake, alert and oriented, no acute distress CVS: S1S2 N RS: CTA B/L Abd: Soft, nt/nd , bs+ [employer]: no focal neuro deficits Urinary Catheter Management^: Mendez: Cath Placed During This Visit: yes Reason for Continuing Indwelling Catheter: Accurate Measurement of Urinary Output in Critically Ill Patients Urinary Catheter Date of Insertion: 09/17/20 Urinary Catheter Time of Insertion: 00:46 Discharge Data Data Completed and Pending: Completed Studies During Hospitalization Category Date Time Status CT abdomen pelvis w con* [id number] Stat Cat Scan 09/16/20 17:50 Completed XR chest 1V birdie ble [id number] Routine Exams 09/17/20 11:07 [place] [id number] Routin e Ultrasound 09/18/20 14:21 Completed Pending at discharge Category Date Time Status Clostridioides Di fficile PCR Routin e Lab 09/16/20 23:11 Uncollected Immunochemical Fe zak OCB Routine Lab 09/18/20 08:43 Ordered Labs from last 24 hours 09/18/20 15:10 SARS-CoV-2 Ag (Rap id) Negative Vitals: Last Vital Signs Temp 97.9 F 09/19/20 10:58 Pulse 81 09/19/20 10:58 Resp 18 09/19/20 10:58 BP 119/65 09/19/20 10:58 Pulse Ox 96 09/19/20 10:58 Discharge Plan Discharge Patient Disposition: Xfer [facility] Condition: Stable Prescriptions: New mirtazapine 15 mg Tablet 7.5 mg PO BEDTIME 30 Days Qty: 30 RF: 0 Nystop 100,000 unit/gram Powder 1 applic topical BID 30 Days Qty: 1 RF: 0 DILT-XR 180 mg Capsule,Ext.Rel 24h Degradable 180 mg PO DAILY 30 Days Qty: 30 RF: 0 Eliquis 5 mg Tablet 2.5 mg PO BID 30 Days Qty: 30 RF: 0 Continued donepezil 10 mg tablet 10 mg PO BEDTIME@20 RF: 0 omeprazole 40 mg capsule,delayed release(DR/EC) 40 mg PO DAILY@0630 RF: 0 acetaminophen 500 mg Tablet 1,000 mg PO Q6H PRN (Reason: Pain) RF: 0 meclizine 25 mg tablet 25 mg PO TID PRN (Reason: Dizziness) RF: 0 ferrous sulfate 325 mg (65 mg iron) Tablet 325 mg PO DAILY@08 RF: 0 nitroglycerin 0.4 mg tablet, sublingual 0.4 mg sublingual PRN RF: 0 gabapentin 300 mg capsule 300 mg PO TID RF: 0 azelastine 137 mcg (0.1 %) aerosol,spray 2 spray intranasal BID@ RF: 0 albuterol sulfate [Ventolin HFA] 90 mcg/actuation HFA aerosol inhaler 2 puff inhalation Q4H PRN (Reason: Shortness Of Breath) RF: 0 fluticasone propionate 50 mcg/actuation spray,suspension 2 spray intranasal DAILY@629 RF: 0 Ex-Lax Maximum Strength 25 mg Tablet 25 mg PO DAILY@1999 RF: 0 dicyclomine 10 mg Capsule 10 mg PO TID PRN (Reason: Pain) RF: 0 cholecalciferol (vitamin D3) 1,250 mcg (50,000 unit) Capsule 1,250 mcg PO Q7D RF: 0 clopidogrel 75 mg Tablet 75 mg PO DAILY@629 RF: 0 tramadol 50 mg Tablet 50 mg PO Q6H PRN (Reason: Pain) RF: 0 tamsulosin 0.4 mg Capsule 0.4 mg PO DAILY@1999 RF: 0 diphenhydramine-acetaminophen [Acetaminophen PM] 25-500 mg Tablet 1 tab PO BEDTIME@1999 RF: 0 furosemide 20 mg Tablet 20 mg PO DAILY@ RF: 0 Changed atorvastatin 10 mg Tablet 20 mg PO DAILY@1999 Qty: 0 RF: 0 cetirizine 10 mg tablet 10 mg PO DAILY@0800 PRN (Reason: allergy) Qty: 0 RF: 0 Discontinued lisinopril 20 mg tablet 20 mg PO BID@ RF: 0 prochlorperazine maleate 10 mg tablet 10 mg PO Q8H PRN (Reason: Nausea) RF: 0 aspirin [Aspir-81] 81 mg Tablet,Delayed Release (Dr/Ec) 81 mg PO DAILY@30 RF: 0 Triple Antibiotic 3.5mg-400 unit- 5,000 unit/gram Ointment See Rx Instructions .ROUTE .COMPLEX RF: 0 hydrochlorothiazide 25 mg Tablet 25 mg PO DAILY@08 RF: 0 Discharge Orders: Discharge Order (Routine); Ordered 09/19/20 Ordered By: Jaky Bernabe Referrals: Siva Montoya [Referring] - 7-10 days (hospital discharge follow up, new onset A fib ) Lore Barillas MD [Physician] - 2 weeks (new onset A fib, recurrent chest pain, h/o CAD ) Discharge Diet: Cardiac Discharge Activity: Resume usual activity Patient Instructions: Abdominal Pain (ED) Discharge Attestations Time Spent in Discharge Care*: greater than 30 min Specific Discharge Activities: educating and/or supporting family/caregiver and discussing with cyanide case hardener/social workers/dc planners Status at Discharge: Cognitive status at discharge: cognitively intact , Behavioral status at discharge: cooperative , Quality Metrics Clinical Quality Measures During this hospital stay, did patient experience: None Coding Level of Care Code Acute Licensed Mental Health Counselor for Chg Fwd Diagnoses Abdominal pain R10.84 Abdominal location: generalized Acute worsening of stage 3 chronic kidney disease N18.30 New onset atrial fibrillation I48.91
== END 2020-09-19 18:50 | disposition skilled nursing facility (03) | DRG 309 ==
LOC: ER 20:55 → ICU 22:21 → CSU 09-18 09:47
PROVIDERS: Family Medicine; Admitting Provider Internal Medicine; Emergency Provider Emergency Medicine; Visit Provider Student in an Organized Health Care Education/Training Program
DX: I48.91 Unspecified atrial fibrillation (principal); I13.0 Hypertensive heart and chronic kidney disease with heart failure and stage 1 through stage 4 chronic kidney disease, or unspecified chronic kidney disease; I50.32 Chronic diastolic (congestive) heart failure; E87.1 Hypo-osmolality and hyponatremia; N17.9 Acute kidney failure, unspecified; I25.10 Atherosclerotic heart disease of native coronary artery without angina pectoris; Z95.5 Presence of coronary angioplasty implant and graft; N18.31 Chronic kidney disease, stage 3a; J44.9 Chronic obstructive pulmonary disease, unspecified; R25.1 Tremor, unspecified; N20.0 Calculus of kidney; Z87.891 Personal history of nicotine dependence; K57.90 Diverticulosis of intestine, part unspecified, without perforation or abscess without bleeding; F03.90 Unspecified dementia, unspecified severity, without behavioral disturbance, psychotic disturbance, mood disturbance, and anxiety; R10.84 Generalized abdominal pain; Z79.51 Long term (current) use of inhaled steroids; Z79.02 Long term (current) use of antithrombotics/antiplatelets
CPT/HCPCS: 12345; 36415; 51702; 71045; 74177; 80048; 80053; 81001; 82550; 83605; 83690; 83735; 84443; 84484; 85025; 85049; 85378; 85730; 87426; 93005; 93970; 96372; 97110; 97116; 97162; 97530; 99283; J1644; J1650; J2405; J3475; J3490; J7030; Q9967